=== PATIENT | male | born 1965 | race Caucasian/White ===

== ENCOUNTER 2019-03-13 12:34 | Observation (INO) ==
[2019-03-13 13:01] LABS: Basophils % 0.2 % (0.1-2.0); Eosinophils % 0.4 % (0.1-12.0); Hematocrit 48.2 % (42.0-52.0); Hemoglobin 15.2 g/dL (14.1-18.0); Lymphocytes # 1.4 K/mm3 (0.7-4.5); Lymphocytes % 13.8 % (10-50); Mean Corpuscular HGB Conc 31.6 g/dL (31.8-35.4); Mean Corpuscular Volume 91.3 fl (80-94); Mean Platelet Volume 7.6 fl (7.4-10.4); Monocytes # 0.7 K/mm3 (0.1-1.0); Neutrophils # 8.2 K/mm3 (1.8-7.8); Neutrophils % 78.6 % (37.0-80.0); Platelet Count 381 K/mm3 (142-424); Red Blood Count 5.28 M/mm3 (4.60-6.20); Red Cell Distribution Width 13.9 % (11.5-17.5); White Blood Count 10.4 K/mm3 (4.8-10.8)
[2019-03-13 13:14] LABS: Alanine Aminotransferase 27 U/L (12-78); Albumin Level 3.7 gm/dL (3.4-5.0); Albumin/Globulin Ratio 0.8 (1.1-1.8); Alkaline Phosphatase 89 U/L (46-116); Anion Gap 13.7 mEq/L (5-15); Aspartate Amino Transferase 21 U/L (15-37); Bilirubin,Total 0.7 mg/dL (0.2-1.0); Blood Urea Nitrogen 12 mg/dL (7-18); Calcium 9.5 mg/dL (8.5-10.1); Carbon Dioxide 30 mmol/L (21.0-32.0); Chloride 98 mmol/L (98-107); Globulin 4.8 gm/dl (1.3-3.2); Glucose 114 mg/dL (74-106); Sodium 138 mmol/L (136-145); Total Protein,Serum 8.5 gm/dL (6.4-8.2)
[2019-03-13 13:16] LABS: Microscopic, Urine URINE MICROSCOPIC (MICROSCOPIC)
[2019-03-13 13:30] LABS: Appearance,Urine CLEAR (Clear); Bilirubin,Urine Negative (Negative); Blood, Urine Negative (Negative); Color,Urine YELLOW (Yellow); Glucose,Urine (UA) Negative (Negative); Ketones,Urine Negative (Negative); Leukocyte Esterase,Urine Negative (Negative); PH,Urine 6.5 (5.0-8.5); Protein,Urine Negative (Negative)
[2019-03-13 13:38] LABS: Amphetamine/Metha Screen,Urine Negative ng/mL (<1000); Barbiturates Screen,Urine Negative ng/mL (<200); Benzodiazepines Screen,Urine Negative ng/mL (<200); Cannabinoid Screen,Urine Negative ng/mL (<50); Cocaine Screen,Urine Negative ng/mL (<300); Methadone Screen,Urine Negative ng/mL (<300); Opiate Screen,Urine Negative ng/mL (<300); Phencyclidine Screen,Urine Negative ng/mL (<25)
--- NOTE | 2019-03-13 13:54 | Emergency Department Note ---
ED Disposition Clinical Impression: Metastatic primary lung cancer Qualifiers: Laterality: right Qualified Code(s): C34.91 - Malignant neoplasm of unspecified part of right bronchus or lung Disposition: Admitted As Inpatient Condition on Discharge: Serious - Critical Care Critical Care Time: No Attestation: On 03/13/19, the high probability of a clinically significant, sudden or life threatening deterioration of the following system(s) required my full and direct attention, intervention and personal management. The time I documented below is in addition to time spent performing reported procedures but includes the following listed in this critical care notation. Medical Decision Making - Rocco Inquiry Pt receiving controlled substance: No Vital Signs: 03/13/19 12:34 03/13/19 13:55 Temperature 98.2 F Temperature Source Oral Pulse Rate [Left Radial] 107 H 97 H Respiratory Rate 23 Blood Pressure [Right Arm] 163/100 H 148/79 H Blood Pressure Mean [Right Arm] 121 102 Blood Pressure Source [Right Arm] Automatic Cuff Automatic Cuff Blood Pressure Position [Right Arm] Sitting Sitting 02 Sat by Pulse Oximetry 98 96 Oxygen Delivery Method Room Air Room Air - Lab Data Lab Results 03/13/19 12:45: WBC 10.4, RBC 5.28, Hgb 15.2, Hct 48.2, MCV 91.3, MCH 28.8, MCHC 31.6 L, RDW 13.9, Plt Count 381, MPV 7.6, Neut % (Auto) 78.6, Lymph % (Auto) 13.8, [place] % (Auto) 7.0, Eos % (Auto) 0.4, Baso % (Auto) 0.2, Neut # (Auto) 8.2 H, Lymph # (Auto) 1.4, [place] # (Auto) 0.7, Eos # (Auto) 0.0, Baso # (Auto) 0.0 03/13/19 12:45: Sodium 138, Potassium 3.7, Chloride 98, Carbon Dioxide 30, Anion Gap 13.7, BUN 12, Creatinine 0.93, Estimated Creat Clear 101, Estimated GFR 85, Est GFR ( Amer) 103, Glucose 114 H, Calcium 9.5, Total Bilirubin 0.7, AST 21, ALT 27, Alkaline Phosphatase 89, Troponin I < 0.02, Total Protein 8.5 H, Albumin 3.7, Globulin 4.8 H, Albumin/Globulin Ratio 0.8 L 03/13/19 13:11: Urine Color Yellow, Urine Appearance Clear, Urine pH 6.5, Ur Specific [place] 1.010, Urine Protein Negative, Urine Glucose (UA) Negative, Urine Ketones Negative, Urine Blood Negative, Urine Nitrate Negative, Urine Bilirubin Negative, Urine Urobilinogen 1.0, Ur Leukocyte Esterase Negative, Urine Bacteria Trace 03/13/19 13:11: Urine Opiates Screen Negative, Urine Methadone Screen Negative, Ur Barbituates Screen Negative, Ur Phencyclidine Scrn Negative, Ur Amphetamines Screen Negative, U Benzodiazepines Scrn Negative, Urine Cocaine Screen Negative, U Marijuana (THC) Screen Negative 03/13/19 13:50: Lactate 1.0 Result diagrams: 03/13/19 12:45 03/13/19 12:45 Orders (Tests/Meds): ED MEDICATIONS Discontinued Medications Generic Name Dose Route Start Last Admin Trade Name Freq PRN Reason Stop Dose Admin Dexamethasone Sodium Phosphate 10 mg 03/13/19 14:10 03/13/19 14:19 Decadron 4mg/Ml 5ml Mdv IV 03/13/19 14:11 10 mg ONCE ONE Administration ORDERS Category Date Time Status Blood Culture Stat Micro 03/13/19 13:55 Received - Radiology Data #1 Image(s): Chest Image Reviewed: Yes I reviewed the patient's radiology image, Yes I discussed the image results w/the radiologist Right upper lobe mass - CT Data CT Scan: Head Time Received: 13:[address] Reviewed: Yes: I discussed the CT results w/the radiologist, I have viewed the radiologist's interpretation Findings Narrative: FINDINGS: There is a moderate amount of edema in the central and left aspect of the cerebellum causing displacement of the 4th ventricle toward the right by approximately 1 cm. There is a moderate amount of beam hardening artifact in the skull base along with some motion decreasing fine detail of this area. This is consistent with a cerebellar mass. Is difficult to determine the size of the lesion. There is moderate hydrocephalus with subependymal flow of CSF. Low-density changes are also present in the right frontal lobe with some nodularity peripherally and also some edema in the left parietal lobe. These findings are worrisome for metastatic disease. Suggest CT of the brain with contrast or preferably MRI without and with contrast for further evaluation. No acute hemorrhage apparent. IMPRESSION: Moderate edematous changes within the central left aspect of the cerebellum and in the right frontal region and left frontal parietal area consistent with multiple brain masses consistent with metastatic disease. There is moderate hydrocephalus and transependymal flow of CSF with midline shift of the 4th ventricle to the right by [address] head with contrast or preferably MRI of the brain without and with contrast for further evaluation Dictated by: Jr Lynch MD 03/13/2019 13:49 Electronically signed by Jr Lynch MD in [place] 03/13/2019 13:49 - ECG Data Tracing #1 EKG interpreted by Prabhu Henao MD: Rhythm: sinus Rate: 84 Wilson: normal Ectopy: none Conduction: normal ST Segment Changes: none T Wave Changes: none Q Waves: none No evidence of acute ischemia or injury - Physician Consults Physician Consulted: [facility] Time: 14:20 Reason -: Transfer to another facilty Comment/Response: On diversion, unable to accept. Discussed with patient's amber krystal. She would prefer for him to stay here rather than being transferred to [facility] or [place]. Additional Consult: Lovely Time: 14:30 Reason -: Admission Comment/Response: Agrees to admit the patient to the hospital. We discussed the patient's clinical information, including history, exam, laboratory and radiology results and ED course. Per hospital procedure, I will write temporary bridge inpatient orders on the patient. Specific orders requested by the admitting physician: Consult with care management. Consult to Dr. Sapp. Walters, consult pharmacy for dosing (8mg q12h per [facility]) General Adult HPI - General Chief complaint: Weakness Stated complaint: weakness Time Seen by Provider: 03/13/19 13:54 Mode of Arrival: EMS Limitations: No Limitations Description of Symptoms (Recalled from ER Triage Doc. by RN): per family/EMS pt has been getting weaker and "sicker" over the last few months. EMS was called out due to family unable to get pt out of the floor. Pt states that he feels fine, no complaints at this time - History of Present Illness HPI narrative: Brought in by ambulance. History obtained from patient's daughter. She reports that he has been declining over the past couple of months. Started with bad headaches then began getting dizzy and having gait instability. Complained of a knot on the back of his neck. For the past couple of days unable to get up and walk. Today they tried to get him off the couch and he slid to the floor and they were unable to get him up and therefore had to call for help. The patient is a smoker. He does not have a physician. He only takes ibuprofen. He is a nondrinker. The patient is currently able to answer a couple of simple questions such as his name, place, and whether he has pain, but not able to give any detailed history. - Related Data Home Medications Medication Instructions Recorded Confirmed Unobtainable 03/13/19 03/13/19 Allergies Allergy/AdvReac Type Severity Reaction Status Date / Time No Known Allergies Allergy Verified 03/13/19 12:41 [facility] History - Hepatitis A Screen Drug use history?: No High risk sexual behaviors?: No History of sexually transmitted infection?: No Currently employed?: No Childcare worker?: No Do you have indoor plumbing?: Yes Do you have electricity?: Yes Attestation statement:: This patient has been screened for Hepatitis A risk factors. I have reviewed the patient's past medical history: Yes - Social History Smoking Status: Unknown if ever smoked Alcohol Intake: never Occupational Status: unemployed ROS Obtained: Yes unobtainable due to mental status Physical Exam - General General appearance: alert, in no apparent distress - Head Head exam: atraumatic, normocephalic - Eye Eye exam: Present: normal appearance, EOMI - ENT ENT exam: Present: mucous membranes moist, other (Poor dentition) - Neck Neck exam: Present: normal inspection, trachea midline, other (No masses palpated). Absent: tenderness, lymphadenopathy - Chest Chest inspection: Present: normal inspection, symmetric chest wall rise - Respiratory Respiratory exam: Present: normal lung sounds bilaterally. Absent: respiratory distress - Cardiovascular Cardiovascular exam: Present: regular rate, normal rhythm, normal heart sounds - Abdominal Exam Abdominal exam: Present: soft, normal bowel sounds. Absent: distention, tenderness - Extremities Exam Extremities exam: Present: normal inspection - Neurological Exam Neurological exam: Present: alert, CN II-XII intact. Absent: oriented X3 (Oriented to person and place, does not answer date), motor sensory deficit - Psychiatric Psychiatric exam: Present: flat affect - Skin Skin exam: Present: warm, dry
[2019-03-13 14:12] LABS: Bacteria,Urine Trace /lpf
--- NOTE | 2019-03-13 18:23 | Electrocardiograph Report ---
APPROVED REPORT Exam: Resting ECG HR:84 bpm ECG Measurements Heart Rate 84 AXES NV 138 P 76 QRSd 88 QRS 64 QT 380 T76 QTc 449 <Conclusion> Normal sinus rhythm with sinus arrhythmia, Incomplete RBBB Otherwise Normal Electronically signed by : Bijan Lopez, 03/13/2019 18:22:20
--- NOTE | 2019-03-14 07:21 | Pharmacy Consult Notes ---
[facility] Pharmacy VTE Monitoring - Patient Demographics Admission date: 03/14/19 Report Date: 03/14/19 Time: 07:21 Allergies/Adverse Reactions: Patient Allergies No Known Allergies Allergy (Verified 03/13/19 12:41) Height: 1.85 m Weight: 84.085 kg Patient Problems: Current Active Problems Metastatic primary lung cancer (Acute) - VTE Risk Labs: VTE Related Lab Results Hgb 15.2 g/dL (14.1-18.0) 03/13/19 12:45 Hct 48.2 % (42.0-52.0) 03/13/19 12:45 Plt Count 381 K/mm3 (142-424) 03/13/19 12:45 BUN 12 mg/dL (7-18) 03/13/19 12:45 Creatinine 0.93 mg/dL (0.70-1.30) 03/13/19 12:45 Estimated Creat Clear 101 mL/min (50-200) 03/13/19 12:45 Clinical Trial Participant: No - Prophylaxis VTE Prophylaxis Ordered?: Yes Types of VTE Prophylaxis: TEDS Knee High
--- NOTE | 2019-03-14 09:28 | History & Physical Report ---
*Admission Date: 03/14/19 *Chief complaint: Altered Mental Status *History of present illness: 53-year-old patient sitting up in bed this morning, daughter at bedside. He does report he is feeling better. Daughter also reports he is more alert this morning then he was yesterday. Explained to daughter this morning that patient's condition is very serious and we would discuss more w/ her after referrals have seen PT. Brought in by ambulance. History obtained from patient's daughter. She reports that he has been declining over the past couple of months. Started with bad headaches then began getting dizzy and having gait instability. Complained of a knot on the back of his neck. For the past couple of days unable to get up and walk. Today they tried to get him off the couch and he slid to the floor and they were unable to get him up and therefore had to call for help. The patient is a smoker. He does not have a physician. He only takes ibuprofen. He is a nondrinker. The patient is currently able to answer a couple of simple questions such as his name, place, and whether he has pain, but not able to give any detailed history. (Per Dr. Henao). 03/13 CXR: IMPRESSION: Increased density in the right upper lobe suspicious for right upper lobe mass. Follow-up with CT chest suggested for confirmation. Dense consolidation could have a similar appearance. Dictated by: Jr Lynch MD 03/[address]: IMPRESSION: Moderate edematous changes within the central left aspect of the cerebellum and in the right frontal region and left frontal parietal area consistent with multiple brain masses consistent with metastatic disease. There is moderate hydrocephalus and transependymal flow of CSF with midline shift of the 4th ventricle to the right by [address] head with contrast or preferably MRI of the brain without and with contrast for further evaluation Dictated by: Jr Lynch MD 03/13 Abd/Pelvis CT: IMPRESSION: No acute findings. Dictated by: Jr Lynch MD [facility] History *Have you ever received a pneumonia vaccine?: No *Have you received a flu vaccine this season?: No - *Social History Smoking Status: Current every day smoker Tobacco Type: cigarettes # Packs/Day (cigarettes): 3 Alcohol Intake: never *Occupational Status:: unemployed Housing: house Household Members: spouse, children *Travel in the last 8 weeks: None Review of Systems - Constitutional Reports fatigue, Reports headache(s), Reports lack of energy, Reports weakness - ENT Reports dizziness, Reports headache(s), Reports neck pain - *Cardiovascular Denies chest pain - *Neurologic Reports abnormal walking, Reports confusion, Reports dizziness, Reports headache(s) - Psychiatric Reports confusion - Endocrine Denies rapid, pounding, or irregular heartbeat, Denies increased urination - Hematologic/Lymphatic Denies easy bleeding, Denies easy bruising - Allergic/Immunologic Denies GI upset with certain foods, Denies tongue swelling Meds Home Medications Medication Instructions Recorded Confirmed Type No Known Home Medications 03/14/19 03/14/19 History Allergies Allergy/AdvReac Type Severity Reaction Status Date / Time No Known Allergies Allergy Verified 03/13/19 12:41 Exam Vital signs and Labs for Last 24 Hours: Temp Pulse Resp BP Pulse Ox 97.8 F 105 H 17 154/59 H 92 L 03/14/19 08:00 03/14/19 08:00 03/14/19 08:00 03/14/19 08:00 03/14/19 08:00 Laboratory Results - last 24 hr 03/13/19 12:45: WBC 10.4, RBC 5.28, Hgb 15.2, Hct 48.2, MCV 91.3, MCH 28.8, MCHC 31.6 L, RDW 13.9, Plt Count 381, MPV 7.6, Neut % (Auto) 78.6, Lymph % (Auto) 13.8, [place] % (Auto) 7.0, Eos % (Auto) 0.4, Baso % (Auto) 0.2, Neut # (Auto) 8.2 H, Lymph # (Auto) 1.4, [place] # (Auto) 0.7, Eos # (Auto) 0.0, Baso # (Auto) 0.0 03/13/19 12:45: Sodium 138, Potassium 3.7, Chloride 98, Carbon Dioxide 30, Anion Gap 13.7, BUN 12, Creatinine 0.93, Estimated Creat Clear 101, Estimated GFR 85, Est GFR ( Amer) 103, Glucose 114 H, Calcium 9.5, Total Bilirubin 0.7, AST 21, ALT 27, Alkaline Phosphatase 89, Troponin I < 0.02, Total Protein 8.5 H, Albumin 3.7, Globulin 4.8 H, Albumin/Globulin Ratio 0.8 L 03/13/19 13:11: Urine Color Yellow, Urine Appearance Clear, Urine pH 6.5, Ur Specific [place] 1.010, Urine Protein Negative, Urine Glucose (UA) Negative, Urine Ketones Negative, Urine Blood Negative, Urine Nitrate Negative, Urine Bilirubin Negative, Urine Urobilinogen 1.0, Ur Leukocyte Esterase Negative, Urine Bacteria Trace 03/13/19 13:11: Urine Opiates Screen Negative, Urine Methadone Screen Negative, Ur Barbituates Screen Negative, Ur Phencyclidine Scrn Negative, Ur Amphetamines Screen Negative, U Benzodiazepines Scrn Negative, Urine Cocaine Screen Negative, U Marijuana (THC) Screen Negative 03/13/19 13:50: Lactate 1.0 I & O for Last 24 hours: Intake & Output 03/11/19 03/12/19 03/13/19 03/14/19 23:59 23:59 23:59 23:59 Intake Total 0 / 0 1076 / 1076 Output Total 1300 / 1300 Balance 0 / 0 -224 / -224 Weight 185 lb 5 oz 185 lb 6 oz - Constitutional no acute distress - *Routine HEENT Exam Head: Present: normocephalic, atraumatic Eye: Present: EOMI, PERRL ENT: Present: mucous membranes dry - *Routine Neck Exam Present: full ROM. Absent: JVD - *Routine Respiratory Exam Present: CTA bilaterally, diminished air movement. Absent: accessory muscle use - *Routine Cardiovascular Exam Present: RRR - *Routine Abdominal Exam Present: soft, normoactive bowel sounds. Absent: tenderness, firm - *Routine Extremities Exam Absent: cyanosis, edema, calf tenderness - Routine Back/Spine/Pelvis Exam Back/Spine: Present: full ROM. Absent: CVA tenderness - *Routine Skin Exam Present: intact, warm. Absent: cyanosis - *Routine Neurological Exam Present: alert, CN II-XII intact, moving all extremities. Absent: motor deficit - Routine Psychiatric Exam Present: normal affect. Absent: auditory hallucinations, visual hallucinations Assessment and Plan - Assessment and plan all Dx Assessment and Plan for all problems:: Rounded with Dr. Murry, all orders per Dr. Murry 1. Refer to Dr. Harris
--- NOTE | 2019-03-14 12:24 | Consult Report ---
*Admission Date: 03/14/19 *Reason for consult:: brain metastasis *History of present illness: 53 yo wm we are ask to see due to new dx of presumed brain metastasis on ct of head and lung lesion noted on cxr. pt is awake but speaks very little- I'm not sure how much he comprehends. family and friends are at bedside. apparently he has being doing well until last night when he was found on the floor. 911 c alled and he was brought to [facility]. ct of head demonstrates significant edema in cerebellum with mid line shift and probable frontal lesion. he was started on decadron. cxr demonstrates concern for rul lung mass. [facility] History I have reviewed the patient's past medical history: Yes *Have you ever received a pneumonia vaccine?: No *Have you received a flu vaccine this season?: No - *Social History Smoking Status: Current every day smoker Tobacco Type: cigarettes # Packs/Day (cigarettes): 3 Alcohol Intake: never *Occupational Status:: unemployed Housing: house Household Members: spouse, children *Travel in the last 8 weeks: None Family Hx:: Unable to obtain Review of Systems - Review of Systems Review of systems:: unable to obtain - *Neurologic Reports abnormal walking, Reports confusion, Reports dizziness, Reports headache(s), Reports weakness Meds Home Medications Medication Instructions Recorded Confirmed Type No Known Home Medications 03/14/19 03/14/19 History Allergies Allergy/AdvReac Type Severity Reaction Status Date / Time No Known Allergies Allergy Verified 03/13/19 12:41 Exam Vital signs and Labs for Last 24 Hours: Temp Pulse Resp BP Pulse Ox 97.8 F 105 H 17 154/59 H 92 L 03/14/19 08:00 03/14/19 08:00 03/14/19 08:00 03/14/19 08:00 03/14/19 08:00 Laboratory Results - last 24 hr 03/13/19 12:45: WBC 10.4, RBC 5.28, Hgb 15.2, Hct 48.2, MCV 91.3, MCH 28.8, MCHC 31.6 L, RDW 13.9, Plt Count 381, MPV 7.6, Neut % (Auto) 78.6, Lymph % (Auto) 13.8, [place] % (Auto) 7.0, Eos % (Auto) 0.4, Baso % (Auto) 0.2, Neut # (Auto) 8.2 H, Lymph # (Auto) 1.4, [place] # (Auto) 0.7, Eos # (Auto) 0.0, Baso # (Auto) 0.0 03/13/19 12:45: Sodium 138, Potassium 3.7, Chloride 98, Carbon Dioxide 30, Anion Gap 13.7, BUN 12, Creatinine 0.93, Estimated Creat Clear 101, Estimated GFR 85, Est GFR ( Amer) 103, Glucose 114 H, Calcium 9.5, Total Bilirubin 0.7, AST 21, ALT 27, Alkaline Phosphatase 89, Troponin I < 0.02, Total Protein 8.5 H, Albumin 3.7, Globulin 4.8 H, Albumin/Globulin Ratio 0.8 L 03/13/19 13:11: Urine Color Yellow, Urine Appearance Clear, Urine pH 6.5, Ur Specific [place] 1.010, Urine Protein Negative, Urine Glucose (UA) Negative, Urine Ketones Negative, Urine Blood Negative, Urine Nitrate Negative, Urine Bilirubin Negative, Urine Urobilinogen 1.0, Ur Leukocyte Esterase Negative, Urine Bacteria Trace 03/13/19 13:11: Urine Opiates Screen Negative, Urine Methadone Screen Negative, Ur Barbituates Screen Negative, Ur Phencyclidine Scrn Negative, Ur Amphetamines Screen Negative, U Benzodiazepines Scrn Negative, Urine Cocaine Screen Negative, U Marijuana (THC) Screen Negative 03/13/19 13:50: Lactate 1.0 I & O for Last 24 hours: Intake & Output 03/12/19 03/13/19 03/14/19 03/15/19 11:59 11:59 11:59 11:59 Intake Total 1076 / 1076 Output Total 1300 / 1300 Balance -224 / -224 Weight 185 lb 6 oz - *Routine Neurological Exam Present: alert (pt nods and will answer some questions), oriented X3 Internal Medicine - CN: Reslt - Labs CBC & Chem 7: 03/13/19 12:45 03/13/19 12:45 Labs: Short CBC 03/13/19 Range/Units 12:45 WBC 10.4 (4.8-10.8) K/mm3 Hgb 15.2 (14.1-18.0) g/dL Hct 48.2 (42.0-52.0) % Plt Count 381 (142-424) K/mm3 BMP 03/13/19 12:45 Sodium 138 Potassium 3.7 Chloride 98 Carbon Dioxide 30 BUN 12 Creatinine 0.93 Glucose 114 H Calcium 9.5 Cardiac Enzymes 03/13/19 Range/Units 12:45 Troponin I < 0.02 (0.00-0.06) ng/ml Liver Function 03/13/19 Range/Units 12:45 Total Bilirubin 0.7 (0.2-1.0) mg/dL AST 21 (15-37) U/L ALT 27 (12-78) U/L Alkaline Phosphatase 89 (46-116) U/L Albumin 3.7 (3.4-5.0) gm/dL Urine 03/13/19 Range/Units 13:11 Urine Color Yellow (Yellow) Urine Appearance Clear (Clear) Urine pH 6.5 (5.0-8.5) Ur Specific [place] 1.010 (1.005-1.030) Urine Protein Negative (Negative) Urine Glucose (UA) Negative (Negative) Assessment and Plan - Assessment and plan all Dx Assessment and Plan for all problems:: pt presents with confusion. ct of head demonstrates edema and probable brain mets. cxr demonstrates rul lung mass. long discussion with pt and family at bedside. discussed clinically this appears to be stage IV lung cancer to brain. discussed not curable. treatment would involve wbxrt which is not offered at [facility]. he would need transfer to another facility. I also discussed comfort measures/bsc as an option. pt is young and was healthy prior. family strongly prefers he is transferred to another facility in [place]. I d/w nursing. thank you for referral. please call with questions. Maci Harris MD
--- NOTE | 2019-03-14 15:32 | H&P/Discharge Summary ---
General - General Admission date:: 03/13/19 Discharge date: 03/14/19 *Admission Date: 03/14/19 *History of present illness: 53-year-old patient sitting up in bed this morning, daughter at bedside. He does report he is feeling better. Daughter also reports he is more alert this morning then he was yesterday. Explained to daughter this morning that patient's condition is very serious and we would discuss more w/ her after referrals have seen PT. Brought in by ambulance. History obtained from patient's daughter. She reports that he has been declining over the past couple of months. Started with bad headaches then began getting dizzy and having gait instability. Complained of a knot on the back of his neck. For the past couple of days unable to get up and walk. Today they tried to get him off the couch and he slid to the floor and they were unable to get him up and therefore had to call for help. The patient is a smoker. He does not have a physician. He only takes ibuprofen. He is a nondrinker. The patient is currently able to answer a couple of simple questions such as his name, place, and whether he has pain, but not able to give any detailed history. (Per Dr. Henao). 03/13 CXR: IMPRESSION: Increased density in the right upper lobe suspicious for right upper lobe mass. Follow-up with CT chest suggested for confirmation. Dense consolidation could have a similar appearance. Dictated by: Jr Lynch MD 03/[address]: IMPRESSION: Moderate edematous changes within the central left aspect of the cerebellum and in the right frontal region and left frontal parietal area consistent with multiple brain masses consistent with metastatic disease. There is moderate hydrocephalus and transependymal flow of CSF with midline shift of the 4th ventricle to the right by [address] head with contrast or preferably MRI of the brain without and with contrast for further evaluation Dictated by: Jr Lynch MD 03/[address]: IMPRESSION: Moderate edematous changes within the central left aspect of the cerebellum and in the right frontal region and left frontal parietal area consistent with multiple brain masses consistent with metastatic disease. There is moderate hydrocephalus and transependymal flow of CSF with midline shift of the 4th ventricle to the right by [address] head with contrast or preferably MRI of the brain without and with contrast for further evaluation Dictated by: Jr Lynch MD 03/13 Abd/Pelvis CT: IMPRESSION: No acute findings. Dictated by: Jr Lynch MD [facility] History *Have you ever received a pneumonia vaccine?: No *Have you received a flu vaccine this season?: No - *Social History Smoking Status: Current every day smoker Tobacco Type: cigarettes # Packs/Day (cigarettes): 3 Alcohol Intake: never *Occupational Status:: unemployed Housing: house Household Members: spouse, children *Travel in the last 8 weeks: None Family Hx:: Unable to obtain Review of Systems - Constitutional Reports fatigue, Reports lack of energy, Reports weakness - Eyes Denies double vision, Denies sensitivity to light - ENT Reports dizziness, Reports headache(s), Reports neck pain - *Cardiovascular Denies chest pain, Denies shortness of breath - *Respiratory Denies chest congestion, Denies shortness of breath - *Gastrointestinal Denies abdominal pain, Denies coffee ground vomit, Denies bright, red blood in stools - *Genitourinary Denies difficulty urinating, Denies painful urination - Integumentary/Breasts Denies bleeding lesions, Denies change in skin color - *Neurologic Reports abnormal walking, Reports confusion, Reports dizziness, Reports headache(s), Reports weakness - Psychiatric Reports confusion, Reports hopelessness, Denies sensing things others do not sense, Denies thoughts of hurting/killing yourself - Endocrine Denies cold intolerance, Denies rapid, pounding, or irregular heartbeat - Hematologic/Lymphatic Denies easy bleeding, Denies easy bruising - Allergic/Immunologic Denies GI upset with certain foods, Denies tongue swelling Exam Vital signs and Labs for Last 24 Hours: Temp Pulse Resp BP Pulse Ox 97.8 F 105 H 17 154/59 H 92 L 03/14/19 08:00 03/14/19 08:00 03/14/19 08:00 03/14/19 08:00 03/14/19 08:00 I & O for Last 24 hours: Intake & Output 03/11/19 03/12/19 03/13/19 03/14/19 23:59 23:59 23:59 23:59 Intake Total 0 / 0 1436 / 1436 Output Total 1300 / 1300 Balance 0 / 0 136 / 136 Weight 185 lb 5 oz 185 lb 6 oz - Constitutional no acute distress - *Routine HEENT Exam Head: Present: normocephalic, atraumatic Eye: Present: EOMI, PERRL. Absent: conjunctival icterus, periorbital tenderness ENT: Present: mucous membranes dry. Absent: sinus tenderness - *Routine Neck Exam Present: full ROM, trachea midline. Absent: JVD, tracheal deviation - *Routine Respiratory Exam Present: CTA bilaterally, diminished air movement. Absent: accessory muscle use, respiratory distress - *Routine Cardiovascular Exam Present: RRR - *Routine Abdominal Exam Present: soft, normoactive bowel sounds. Absent: tenderness, firm - *Routine Extremities Exam Present: full ROM, pulses intact. Absent: cyanosis, calf tenderness - Routine Back/Spine/Pelvis Exam Back/Spine: Present: full ROM. Absent: CVA tenderness - *Routine Skin Exam Present: intact. Absent: cyanosis, jaundice - *Routine Neurological Exam Present: alert, CN II-XII intact, moving all extremities. Absent: tremors - Routine Psychiatric Exam Present: normal affect. Absent: auditory hallucinations, visual hallucinations Hospital Course Hospital Course: 53-year-old male patient admitted from ED with weakness and falling and altered mental status. CT of head and chest with presumed brain metastasis and lung lesion noted on chest x-ray (per Dr. Harris). CT of head significant edema in the cerebellum with midline shift and probable frontal lesion (per Dr. Harris). [facility] is on diversion patient will be transferred to [facility] on oncology floor. Dr. Harris has discussed patient with Dr. Barr of [facility]. Verbal report given to Dr. Abel. Family is aware and is agreeable to transfer. On floor patient has received IV steroids. Results - Additional Comments Rounded with Dr. Murry, all orders per Dr. Murry 1. We will transfer to [facility] on oncology service 2. Report phoned to Dr. Pastor DS: Diagnosis - Discharge Diagnosis (1) Altered mental state Status: Acute (2) Metastatic primary lung cancer Status: Acute (3) Tobacco abuse Status: Acute Discharge Plan - Patient Discharge Instructions ACTIVITY: Continue current activity DIET: continue same diet - Follow up Plan Disposition: Xfer Other Home Medications: Home Medications Medication Instructions Recorded Confirmed Type No Known Home Medications 03/14/19 03/14/19 History Prescriptions/Medication Reconciliation: No Action No Known Home Medications - Problem Reconciliation Problems Reviewed?: Yes
== END 2019-03-14 20:00 | disposition short-term general hospital (02) ==
LOC: ER 12:34 → 2ND 14:49 → INTOOBSV 16:26 → 2ND 16:27
PROVIDERS: ADMIT Emergency Medicine; ATTEND Emergency Medicine
DX: C34.11 Malignant neoplasm of upper lobe, right bronchus or lung; Z72.0 Tobacco use; C79.31 Secondary malignant neoplasm of brain
CPT/HCPCS: 36415; 70450; 71010; 71045; 72170; 80053; 80305; 81001; 83605; 84484; 85025; 87040; 93005; 96374; 96375; 99284; G0378; J2405

== ENCOUNTER 2019-05-03 08:45 | Outpatient (RCR) | payer OTHER, SELFPAY | END 2019-05-03 08:50 | disposition home or self-care (01) | LOC: PT 08:45 | PROVIDERS: Visit Provider Internal Medicine Medical Oncology | DX: C34.91 Malignant neoplasm of unspecified part of right bronchus or lung; R53.1 Weakness | CPT/HCPCS: 97163 ==

== ENCOUNTER 2019-05-10 11:17 | Outpatient (CLI) | payer OTHER, SELFPAY ==
[2019-05-10 11:18] VITALS: BMI 24.6
[2019-05-10 12:00] VITALS: BP 106/74; PULSE 103; RESP 18; O2SAT 94
[2019-05-10 12:15] LABS: Basophils % 0.3 % (0.1-2.0); Eosinophils # 0.1 K/mm3 (0.0-0.4); Eosinophils % 0.9 % (0.1-12.0); Hematocrit 41.1 % (42.0-52.0); Hemoglobin 13.6 g/dL (14.1-18.0); Lymphocytes # 0.8 K/mm3 (0.7-4.5); Lymphocytes % 13.4 % (10-50); Mean Corpuscular HGB Conc 33.2 g/dL (31.8-35.4); Mean Corpuscular Hemoglobin 30.3 pg (27.0-31.2); Mean Corpuscular Volume 91.1 fl (80-94); Mean Platelet Volume 7.4 fl (7.4-10.4); Monocytes # 0.2 K/mm3 (0.1-1.0); Monocytes % 3.8 % (1.7-9.3); Neutrophils % 81.6 % (37.0-80.0); Platelet Count 346 K/mm3 (142-424); Red Blood Count 4.51 M/mm3 (4.60-6.20); Red Cell Distribution Width 16.2 % (11.5-17.5); White Blood Count 6.2 K/mm3 (4.8-10.8)
[2019-05-10 13:35] LABS: Blood Urea Nitrogen 23 mg/dL (7-18); Calcium 8.3 mg/dL (8.5-10.1); Carbon Dioxide 25 mmol/L (21.0-32.0); Chloride 104 mmol/L (98-107); Creatinine Clearance Estimated 121 mL/min (50-200); Creatinine,Serum 0.86 mg/dL (0.70-1.30); Estimated Glomerular Filt Rate 93 ml/min (>60); GFR (African American) 113 ML/MIN (>60); Glucose 114 mg/dL (74-106); Sodium 141 mmol/L (136-145)
== END 2019-05-10 12:10 | disposition home or self-care (01) ==
LOC: INF 11:17
PROVIDERS: Visit Provider Internal Medicine Medical Oncology
DX: C34.11 Malignant neoplasm of upper lobe, right bronchus or lung (principal)
CPT/HCPCS: 36415; 80048; 85025; 96372

== ENCOUNTER 2019-05-30 07:38 | Outpatient (CLI) | payer OTHER, SELFPAY ==
[2019-05-30] VITALS (8 sets, daily range): BP systolic 105–133; BP diastolic 67–93; PULSE 109–125; RESP 18–20; TEMP 36.8; O2SAT 96; BMI 25.4
--- NOTE | 2019-05-30 08:17 | CT_ITS ---
PROCEDURE: CT ABDOMEN PELVIS W CON CLINICAL INDICATION: LUNG CANCER Lung cancer evaluation COMPARISON: CT HEAD/BRAIN WO CON from 03/13/2019 TECHNIQUE: IV Contrast: 75ML OPTIRAY 350 Oral Contrast 20ml Gastroview Axial images obtained with sagittal and coronal reformats. All CT scans at the facility use one or more dose reduction, viz: automated exposure control, ma/kV adjustment per patient size (including targeted exams where dose is matched to indication, i.e. head), or iterative reconstruction technique. FINDINGS: LOWER THORAX: Please see chest CT report ABDOMEN & PELVIS: There is some fatty infiltration along the falciform ligament. There are 2 small isodense to these of the left hepatic lobe which are nonspecific too small to categorize at 4 mm each. The spleen and pancreas have an unremarkable appearance. There is some minimal nodularity of the left adrenal gland at 1.3 cm nonspecific requiring follow-up. No intestinal obstruction or free air. There is a [employer] shunt traversing the right anterior abdominal wall with the tip in the right mid abdominal region laterally. No abdominal or pelvic mass or adenopathy. There is diverticulosis of the sigmoid colon but no evidence of diverticulitis. There is mild thickening of the urinary bladder nonspecific. No bony destructive process. IMPRESSION: 1. There are 2 small hypodensities of the left hepatic lobe which are too small to categorize. There is minimal nodularity of left adrenal gland nonspecific. Overall, the findings are not convincing for metastasis. However, follow-up is suggested for confirmation. 2. Colonic diverticulosis. No evidence of diverticulitis. 3. [employer] shunt in place Dictated by: Jr Lynch MD 05/31/2019 12:38 Electronically signed by Jr Lynch MD in [facility] 05/31/2019 12:38
--- NOTE | 2019-05-30 08:17 | CT_ITS ---
PROCEDURE: CT CHEST W CON CLINCAL INDICATION: LUNG CANCER Follow-up lung cancer COMPARISON: XR CHEST PORTABLE from 03/13/2019 CT ABDOMEN PELVIS W CON from 05/30/2019 TECHNIQUE: IV Contrast: 75ml Optiray 350 Axial images obtained with sagittal and coronal reformats. All CT scans at the facility use one or more dose reduction, viz: automated exposure control, ma/kV adjustment per patient size (including targeted exams where dose is matched to indication, i.e. head), or iterative reconstruction technique. FINDINGS: Previous exam is unavailable for comparison. The report was delayed waiting on outside films for comparison but have not been made available. Limited outside reports are available. Addendum can be added if images are made available for comparison. There is a large right suprahilar mass measuring to 6.8 cm AP, 7.8 cm cephalad caudad, and up to 4.7 cm transverse. This involves the mediastinum insert clean the superior vena cava with invasion into the mediastinal fat. Nodularity noted in the anterior mediastinum consistent with extension or lymph nodes. Enlarged node is present in the left AP window at 3 x 1.4 cm. The right hilar mass encircles the segmental upper lobe pulmonary arteries and drapes over the descending branch of the right pulmonary artery laterally. There is a right supraclavicular lymph node at 2.1 by 1.2 cm. A [employer] shunt traverses the right hemithorax medially Patchy areas of infiltrate are present in the right upper lobe may be postobstructive in nature. There is an area of cavitation in the central aspect of the right middle lobe. This measures 4.7 cm. There is some peripheral consolidation around this area of cavitation. Other smaller cavitary nodules are present in the right middle lobe along with a nodular area in the right middle lobe medially at 1.9 cm. Scattered pulmonary nodular opacities are present bilaterally. There is some infiltrate noted in the right lower lobe posteriorly and laterally. In the lingula there is a masslike area measuring 4.4 cm with some internal cavitation with smaller nodular opacities in the left lower lobe and in the inferior lingula. No acute bony anomalies. IMPRESSION: 1. Right hilar mass with invasion into the mediastinum with mediastinal and supraclavicular adenopathy as described above consistent with bronchogenic carcinoma. 2. There Is a prominent cavitary lesion in the right middle lobe and a masslike area of density in the lingula with some central cavitation along with other smaller cavitary nodules. These could be neoplastic or infectious/inflammatory. Please correlate with old exam which is not available for comparison. 3. There is a small embolus within the posterior basilar segmental artery of the right lower lobe age indeterminate. Dictated by: Jr Lynch MD 06/01/2019 10:04 Electronically signed by Jr Lynch MD in [facility] 06/01/2019 10:04
[2019-05-30 09:18] LABS: Basophils % 0.2 % (0.1-2.0); Eosinophils % 0.1 % (0.1-12.0); Hematocrit 37.2 % (42.0-52.0); Hemoglobin 12.3 g/dL (14.1-18.0); Lymphocytes # 1.7 K/mm3 (0.7-4.5); Lymphocytes % 10.8 % (10-50); Mean Corpuscular Volume 90.9 fl (80-94); Mean Platelet Volume 8.1 fl (7.4-10.4); Monocytes # 0.7 K/mm3 (0.1-1.0); Monocytes % 4.3 % (1.7-9.3); Neutrophils # 13.3 K/mm3 (1.8-7.8); Neutrophils % 84.6 % (37.0-80.0); Platelet Count 577 K/mm3 (142-424); Red Blood Count 4.09 M/mm3 (4.60-6.20); Red Cell Distribution Width 16.3 % (11.5-17.5); White Blood Count 15.7 K/mm3 (4.8-10.8)
[2019-05-30 09:19] LABS: MANUAL DIFFERENTIAL MANUAL DIFFERENTIAL (MANUAL DIFF)
[2019-05-30 09:28] LABS: Anion Gap 12.2 mEq/L (5-15); Blood Urea Nitrogen 24 mg/dL (7-18); Carbon Dioxide 28 mmol/L (21.0-32.0); Chloride 100 mmol/L (98-107); Creatinine Clearance Estimated 144 mL/min (50-200); Creatinine,Serum 0.72 mg/dL (0.70-1.30); Estimated Glomerular Filt Rate 115 ml/min (>60); GFR (African American) 139 ML/MIN (>60); Glucose 86 mg/dL (74-106); Potassium 4.2 mmoL/L (3.5-5.1); Sodium 136 mmol/L (136-145)
[2019-05-30 10:08] LABS: Lymphocytes % 12 % (10-50); Monocytes % 7 % (2-9); Neutrophils % 81 % (42-76); Platelet Estimate Slight Increase; RBC Morphology Normal; Total Cells Counted 100
== END 2019-05-30 13:05 | disposition home or self-care (01) ==
LOC: RAD 08:12 → INF 09:04
PROVIDERS: PCP Emergency Medicine; Visit Provider Internal Medicine Medical Oncology
DX: Z51.11 Encounter for antineoplastic chemotherapy (principal); C34.91 Malignant neoplasm of unspecified part of right bronchus or lung
CPT/HCPCS: 71260; 74177; 80048; 85007; 85025; 96411; 96413; 96417; J8501; J9045; J9271; J9305; Q0166; Q9967

== ENCOUNTER 2019-06-20 10:25 | Outpatient (CLI) | payer OTHER, SELFPAY ==
[2019-06-20 10:26] VITALS: BMI 24.6
[2019-06-20 11:10] LABS: Basophils # 0.1 K/mm3 (0-0.2); Basophils % 0.3 % (0.1-2.0); Eosinophils # 0.1 K/mm3 (0.0-0.4); Eosinophils % 0.2 % (0.1-12.0); Hematocrit 32.6 % (42.0-52.0); Hemoglobin 10.4 g/dL (14.1-18.0); Lymphocytes # 0.8 K/mm3 (0.7-4.5); Lymphocytes % 2.5 % (10-50); Mean Corpuscular HGB Conc 31.9 g/dL (31.8-35.4); Mean Corpuscular Hemoglobin 28.8 pg (27.0-31.2); Mean Corpuscular Volume 90.5 fl (80-94); Mean Platelet Volume 8.4 fl (7.4-10.4); Monocytes % 3.3 % (1.7-9.3); Neutrophils # 28.9 K/mm3 (1.8-7.8); Neutrophils % 93.7 % (37.0-80.0); Platelet Count 596 K/mm3 (142-424); Red Cell Distribution Width 16.3 % (11.5-17.5)
[2019-06-20 11:13] LABS: White Blood Count 29.9 K/mm3 (4.8-10.8)
[2019-06-20 11:14] LABS: MANUAL DIFFERENTIAL MANUAL DIFFERENTIAL (MANUAL DIFF)
[2019-06-20 11:25] LABS: Alanine Aminotransferase 16 U/L (12-78); Albumin Level 1.4 gm/dL (3.4-5.0); Albumin/Globulin Ratio 0.3 (1.1-1.8); Alkaline Phosphatase 156 U/L (46-116); Anion Gap 18.3 mEq/L (5-15); Bilirubin,Total 0.4 mg/dL (0.2-1.0); Blood Urea Nitrogen 32 mg/dL (7-18); Calcium 8.9 mg/dL (8.5-10.1); Carbon Dioxide 22 mmol/L (21.0-32.0); Chloride 97 mmol/L (98-107); Creatinine Clearance Estimated 119 mL/min (50-200); Creatinine,Serum 0.87 mg/dL (0.70-1.30); Estimated Glomerular Filt Rate 92 ml/min (>60); GFR (African American) 111 ML/MIN (>60); Globulin 5.3 gm/dl (1.3-3.2); Glucose 99 mg/dL (74-106); Sodium 133 mmol/L (136-145); Total Protein,Serum 6.7 gm/dL (6.4-8.2)
[2019-06-20 11:28] LABS: Aspartate Amino Transferase 27 U/L (15-37); Potassium 4.3 mmoL/L (3.5-5.1)
[2019-06-20 11:30] LABS: Lymphocytes % 7 % (10-50); Monocytes % 5 % (2-9); Neutrophils % 84 % (42-76); Platelet Estimate Normal; RBC Morphology Normal; Total Cells Counted 100
--- NOTE | 2019-06-20 11:30 | PC.NURSE ---
1130- spoke with kathy rn from oncology with stating that will be going to the er not returning to infusion for treatment today. pt will be scheduled for chemo at a later date.
== END 2019-06-20 11:30 | disposition still patient (30) ==
LOC: INF 10:25
PROVIDERS: Visit Provider Internal Medicine Medical Oncology
DX: Z51.11 Encounter for antineoplastic chemotherapy (principal); C34.11 Malignant neoplasm of upper lobe, right bronchus or lung
CPT/HCPCS: 80053; 85007; 85025

== ENCOUNTER 2019-06-20 11:32 | Inpatient (IN) ==
--- NOTE | 2019-06-20 11:45 | Emergency Department Note ---
ED Disposition Clinical Impression: COPD with acute exacerbation Pneumonia Qualifiers: Pneumonia type: due to unspecified organism Laterality: bilateral Lung location: unspecified part of lung Qualified Code(s): J18.9 - Pneumonia, unspecified organism Metastatic primary lung cancer Qualifiers: Laterality: unspecified laterality Qualified Code(s): C34.90 - Malignant neoplasm of unspecified part of unspecified bronchus or lung Disposition: Admitted As Inpatient Condition on Discharge: Fair (Stable) Time of Disposition: 13:07 - Critical Care Critical Care Time: No Attestation: On , the high probability of a clinically significant, sudden or life threatening deterioration of the following system(s) required my full and direct attention, intervention and personal management. The time I documented below is in addition to time spent performing reported procedures but includes the following listed in this critical care notation. Medical Decision Making - Medical Records Medical records reviewed: Yes: I reviewed the patient's medical records. - Rocco Inquiry Pt receiving controlled substance: No Rocco was queried for this patient: No Vital Signs: 06/20/19 11:38 06/20/19 11:42 06/20/19 12:10 Temperature 97.5 F L Temperature Source Oral Pulse Rate [Right] 130 H 145 H Respiratory Rate 27 H Blood Pressure [Right Arm] 119/72 Blood Pressure Mean [Right Arm] 87 Blood Pressure Source [Right Arm] Blood Pressure Position [Right Arm] 02 Sat by Pulse Oximetry 93 L Oxygen Delivery Method Oxygen Flow Rate (LPM) 06/20/19 12:42 06/20/19 12:56 06/20/19 13:13 Temperature Temperature Source Pulse Rate [Right] 142 H 138 H Respiratory Rate Blood Pressure [Right Arm] 110/79 Blood Pressure Mean [Right Arm] 89 Blood Pressure Source [Right Arm] Automatic Cuff Blood Pressure Position [Right Arm] Sitting 02 Sat by Pulse Oximetry 97 96 Oxygen Delivery Method Nasal Cannula Nasal Cannula Nasal Cannula Oxygen Flow Rate (LPM) 2 3 3 - Lab Data Lab results reviewed: Yes: I reviewed the patient's lab results. Lab Results 06/20/19 11:43: Specimen Source Left brachial, O2 % 3lpm nc, ABG pH 7.41, ABG pCO2 31.8 L, ABG pO2 24.1 L, ABG HCO3 19.5 L, ABG Total CO2 20.5 L, ABG O2 Saturation 34 L*, ABG Base Excess -5.2 L, Jr Test Non applicable 06/20/19 11:50: Influenza Type A Ag Negative, Influenza Type B Ag Negative Orders (Tests/Meds): ED MEDICATIONS Generic Name Dose Route Start Last Admin Trade Name Fremeliton PRN Reason Stop Dose Admin Acetaminophen 650 mg 06/20/19 13:10 Acetaminophen 325mg Tab PO 07/20/19 13:09 Q4HP PRN As Needed for Fever or Pain Albuterol/Ipratropium 3 ml 06/20/19 13:12 Duoneb 3ml [facility] 07/20/19 13:11 Q4HP PRN Shortness Of Breath Albuterol/Ipratropium 3 ml 06/20/19 13:12 Duoneb 3ml [facility] 07/20/19 13:11 Q1HP PRN Shortness Of Breath Ertapenem 1 gm/ Sodium 50 mls @ 100 mls/hr 06/20/19 12:30 06/20/19 12:57 Chloride IV 07/04/19 12:29 100 mls/hr Q24H VERÓNICA Administration Protocol Sodium Chloride 1,000 mls @ 75 mls/hr 06/20/19 13:15 Sod Chlor 0.9% 1000ml Bag IV 07/20/19 13:14 .[id number] VERÓNICA Ondansetron HCl 4 mg 06/20/19 13:10 Zofran 4mg/2ml Vial IV 07/20/19 13:09 Q8HP PRN Nausea Sodium Chloride 3 ml 06/20/19 12:41 Sodium Chloride 3% 15ml [facility] 07/20/19 12:40 ONCE PRN INDUCE SPUTUM COLLECTION Sodium Chloride 10 ml 06/20/19 13:10 Saline Flush 10ml Syringe IV 07/20/19 13:09 NEEDED PRN Maintain IV Site Discontinued Medications Generic Name Dose Route Start Last Admin Trade Name Freq PRN Reason Stop Dose Admin Albuterol/Ipratropium 3 ml 06/20/19 11:43 06/20/19 12:00 Duoneb 3ml [facility] 06/20/19 11:44 3 ml ONCE ONE Administration Albuterol/Ipratropium 3 ml 06/20/19 13:02 Duoneb 3ml [facility] 06/20/19 13:03 ONCE ONE Sodium Chloride 1,000 mls @ 999 mls/hr 06/20/19 12:00 06/20/19 11:51 Sod Chlor 0.9% 1000ml Bag IV 06/20/19 13:00 999 mls/hr .Q1H1M VERÓNICA Administration Methylprednisolone Sodium Succinate 125 mg 06/20/19 11:47 06/20/19 11:47 Solu-Medrol 125mg/2ml Vial IV 06/20/19 11:48 125 mg ONCE ONE Administration Miscellaneous 1 each 06/20/19 13:15 Vancomycin Consult Request * 07/20/19 13:14 CONSULT PHARMACY VERÓNICA ORDERS Category Date Time Status BNP [B-Type Natriuretic Peptide] Stat Lab 06/20/19 11:42 Ordered Complete Blood Count Auto Diff Stat Lab 06/20/19 11:42 Ordered Comprehensive Metabolic Panel Stat Lab 06/20/19 11:42 Ordered Lactic Acid Stat Lab 06/20/19 11:42 Ordered Magnesium Stat Lab 06/20/19 11:47 Ordered Troponin I Q3H Lab 06/20/19 14:45 Ordered Troponin I Q3H Lab 06/20/19 17:45 Ordered Troponin I Stat Lab 06/20/19 11:42 Ordered Urinalysis and Microscopic Stat Lab 06/20/19 11:42 Ordered Blood Culture Stat Micro 06/20/19 13:01 Ordered Sputum Culture & Gram Stain Stat Micro 06/20/19 12:41 Ordered - Radiology Data #1 Image(s): Chest Image Reviewed: Yes I reviewed the patient's radiology results [address] [place] [address] XRay Report Signed Patient: Jarrett Gonzales MR#: [id number] : 1965 Acct:[id number] Age/Sex: 53 / M ADM Date: 06/20/19 Loc: ER Attending Dr: Ordering Physician: Jose Alvarez III, DO Date of Service: 06/20/19 Procedure(s): XR chest portable Accession Number(s): [id number] cc: Axel Cardona MD; Frederick Murry MD~ PROCEDURE: XR CHEST PORTABLE CLINICAL HISTORY: shortness of breath COMPARISON: XR CHEST PORTABLE from 03/13/2019 CT CHEST W CON from 05/30/2019 FINDINGS: There are widespread bilateral pulmonary opacities suspicious for multifocal pneumonia. Some of the opacities are nodule like and may represent intrapulmonary metastases in this patient with a history of lung carcinoma. Postcontrast CT could further evaluate. Right paratracheal lymphadenopathy is suggested. There is no appreciable pleural effusion. The heart is not enlarged and there is no CHF No acute bony abnormalities. IMPRESSION: Interval worsening with multiple bilateral pulmonary opacities suspicious for multifocal pneumonia and or metastases. Dictated by: Axel Cardona 06/20/2019 12:38 Electronically signed by Axel Cardona in [facility] 06/20/2019 12:38 - ECG Data Tracing #1 I reviewed this ECG and interpreted as documented below: (EKG at 11:42 AM showed a sinus tachycardia with a rate of 145 bpm. Some artifact noted. No acute ST changes.) Medical Decision Narrative: 13:04 patient evaluated and worked up. Case subsequently discussed with Pop Dietrich NP taking call for Dr. Murry today. She is agreed to admit this patient. I have discussed results of work-up, diagnosis and care plan with patient and family. They understand, agree and all questions answered. Patient will now be admitted. General Adult HPI - General Stated complaint: high heart rate and blood pressure Time Seen by Provider: 06/20/19 11:38 Mode of Arrival: Wheelchair Source of Information: Patient, Relative Limitations: No Limitations - History of Present Illness HPI narrative: Patient is here in emergency room for evaluation after he presented to have a second chemotherapy treatment for known lung cancer. Patient was found to have an elevated heart rate and they requested he come here for evaluation. Patient has had some increasing shortness of breath and ZURITA. Patient also states that he has a cough which has become worse over the past few days. Cough is congested and productive. No chest pain or abdominal pain. No vomiting or diarrhea. Patient is afebrile. - Related Data Home Medications Medication Instructions Recorded Confirmed dexamethasone 4 mg tablet 4 mg PO DAILY tab 04/10/19 06/20/19 levetiracetam 500 mg tablet 500 mg PO BID 04/10/19 06/20/19 pantoprazole 40 mg tablet,delayed 40 mg PO BID 04/10/19 06/20/19 release Folic Acid [Folic Acid 1mg tablet] 1 mg PO DAILY 05/10/19 06/20/19 Metoprolol Tartrate [Lopressor 12.5 mg PO BID 05/10/19 06/20/19 25mg tablet] albuterol sulfate 90 mcg/actuation 90 mcg INHALATION DAILY 05/30/19 06/20/19 aerosol inhaler ondansetron HCl 8 mg tablet 8 mg PO NEEDED PRN tab 05/30/19 06/20/19 prochlorperazine maleate 10 mg 10 mg PO DAILY tab 05/30/19 06/20/19 tablet Albuterol Sulfate [Albuterol 2.5 mg INHALATION TID 06/11/19 06/20/19 0.083% 2.5mg/3mL neb] Allergies Allergy/AdvReac Type Severity Reaction Status Date / Time No Known Allergies Allergy Verified 06/20/19 11:42 [facility] History - Hepatitis A Screen Drug use history?: No Attestation statement:: This patient has been screened for Hepatitis A risk factors. I have reviewed the patient's past medical history: Yes Medical History: Reports:: Cancer, Seizures Denies:: Diabetes Mellitus Type 1, Diabetes Mellitus Type 2, Internal Pacemaker, MRSA Other Medical History: Reports: Chemotherapy, Radiation Therapy. Denies: Blood Transfusion Reaction Other Surgeries: Yes: Cancer Surgery, Other. No: Pacemaker Amputation: No Fractures: No Comment: brain shunt - Social History Smoking Status: Former smoker Tobacco Type: cigarettes # Packs/Day (cigarettes): 2 #Yrs smoked (if former smoker): 30 Alcohol Intake: never Substance Use Type: denies use Occupational Status: unemployed Housing: house Household Members: spouse, children Family Hx:: Non-contributory ROS Obtained: Yes All systems reviewed & no additional complaints - Constitutional Constitutional: Reports system reviewed and no additional complaints, except as docu, Reports as per HPI, Denies fever(s) - Eyes Eyes: Reports system reviewed and no additional complaints, except as docu - ENT Ears, Nose, Mouth, and Throat: Reports system reviewed and no additional complaints, except as docu - Cardiovascular Cardiovascular: Reports system reviewed and no additional complaints, except as docu, Reports as per HPI, Denies chest pain, Denies chest pain at rest, Reports dyspnea, Reports leg edema (mild bilateral lower leg) - Respiratory Respiratory: Yes system reviewed and no additional complaints, except as docu, Yes as per HPI, Yes chest congestion, Yes cough, Yes dyspnea, Yes dyspnea on exertion, Yes other (lung cancer) - Gastrointestinal Gastrointestingal: Reports: system reviewed and no additional complaints, except as docu - Genitourinary Male Genitourinary: Reports system reviewed and no additional complaints, except as docu - Musculoskeletal Musculoskeletal: Reports system reviewed and no additional complaints, except as docu - Integumentary/Breasts Skin/Breast: Reports system reviewed and no additional complaints, except as docu - Neurologic Neurologic: Reports system reviewed and no additional complaints, except as docu - Endocrine Endocrine: Reports system reviewed and no additional complaints, except as docu - Hematologic/Lymphatic Henatologic/Lymphatic: Reports system reviewed and no additional complaints, except as docu - Allergic/Immunologic Allergic/Immunologic: Reports system reviewed and no additional complaints, except as docu Physical Exam - General General appearance: alert - Head Head exam: atraumatic, normocephalic, normal inspection - Eye Eye exam: Present: PERRL, EOMI - ENT ENT exam: Present: mucous membranes moist - Neck Neck exam: Present: trachea midline - Chest Chest inspection: Present: normal inspection. Absent: tenderness - Respiratory Respiratory exam: Present: other (Diminished BS bilaterally with diffuse rhonchi and end-expiratory wheezing. (+) rhonchus, congested cough.). Absent: stridor - Cardiovascular Cardiovascular exam: Present: tachycardia. Absent: normal heart sounds, gallop - Abdominal Exam Abdominal exam: Present: soft, normal bowel sounds. Absent: distention, tenderness, rebound - Extremities Exam Extremities exam: Present: full ROM, other (Mild bilateral lower leg edema) - Neurological Exam Neurological exam: Present: alert, oriented X3, CN II-XII intact - Psychiatric Psychiatric exam: Present: normal mood, flat affect - Skin Skin exam: Present: warm, dry, intact. Absent: rash
[2019-06-20 12:20] LABS: ABG Base Excess -5.2 mmol/L (-2.4-2.3); ABG HCO3 19.5 mmhg (22.0-26.0); ABG Oxygen Saturation 34 % (90-100); ABG PCO2 31.8 mmhg (35.0-45.0); ABG PH 7.41 mmol/L (7.35-7.45); ABG TCO2 20.5 mmhg (23-27)
[2019-06-20 12:23] LABS: Allen's Test Non Applicable
[2019-06-20 12:24] LABS: ABG PO2 24.1 mmhg (80-100)
--- NOTE | 2019-06-20 13:13 | Pharmacy Consult Notes ---
- Pharmacy Consult Date: 06/20/19 Time: 13:11 Referring provider: DR. WILLIS Reason for Consult:: VANCOMYCIN DOSING Allergies and ADEs:: Allergies Allergy/AdvReac Type Severity Reaction Status Date / Time No Known Allergies Allergy Verified 06/20/19 11:42 Home Medications:: Home Medications Medication Instructions Recorded Confirmed Type dexamethasone 4 mg tablet 4 mg PO DAILY tab 04/10/19 06/11/19 History levetiracetam 500 mg tablet 500 mg PO BID 04/10/19 06/11/19 History pantoprazole 40 mg tablet,delayed 40 mg PO BID 04/10/19 06/11/19 History release Folic Acid [Folic Acid 1mg tablet] 1 mg PO DAILY 05/10/19 06/11/19 History Metoprolol Tartrate [Lopressor 12.5 mg PO BID 05/10/19 06/11/19 History 25mg tablet] albuterol sulfate 90 mcg/actuation 90 mcg INHALATION DAILY 05/30/19 06/11/19 History aerosol inhaler ondansetron HCl 8 mg tablet 8 mg PO NEEDED PRN tab 05/30/19 06/11/19 History prochlorperazine maleate 10 mg 10 mg PO DAILY tab 05/30/19 06/11/19 History tablet Albuterol Sulfate [Albuterol 2.5 mg INHALATION TID 06/11/19 06/11/19 History 0.083% 2.5mg/3mL neb] Height: 1.85 m Weight: 82.554 kg Laboratory Results:: Laboratory Results - last 24 hr 06/20/19 11:43: Specimen Source Left brachial, O2 % 3lpm nc, ABG pH 7.41, ABG pCO2 31.8 L, ABG pO2 24.1 L, ABG HCO3 19.5 L, ABG Total CO2 20.5 L, ABG O2 Saturation 34 L*, ABG Base Excess -5.2 L, Jr Test Non applicable 06/20/19 11:50: Influenza Type A Ag Negative, Influenza Type B Ag Negative Medical History: Reports:: Cancer (lung), Seizures Denies:: Diabetes Mellitus Type 1, Diabetes Mellitus Type 2, Internal Pacemaker, MRSA Assessment and Plan - Assessment and plan all Dx Assessment and Plan for all problems:: BASED ON PATIENT'S FACTORS, RECOMMEND STARTING WITH VANCOMYCIN 1750 MG Q12H AT THIS TIME. PHARMACY WILL FOLLOW DAILY AND ADJUST APPROPRIATE.
[2019-06-20 14:02] LABS: Basophils % 0.2 % (0.1-2.0); Eosinophils % 0.1 % (0.1-12.0); Hematocrit 30.2 % (42.0-52.0); Hemoglobin 9.5 g/dL (14.1-18.0); Lymphocytes # 0.5 K/mm3 (0.7-4.5); Lymphocytes % 1.9 % (10-50); Mean Corpuscular HGB Conc 31.4 g/dL (31.8-35.4); Mean Corpuscular Volume 90.4 fl (80-94); Mean Platelet Volume 8.7 fl (7.4-10.4); Monocytes # 0.6 K/mm3 (0.1-1.0); Monocytes % 2.2 % (1.7-9.3); Neutrophils # 24.7 K/mm3 (1.8-7.8); Neutrophils % 95.7 % (37.0-80.0); Platelet Count 589 K/mm3 (142-424); Red Blood Count 3.34 M/mm3 (4.60-6.20); Red Cell Distribution Width 16.2 % (11.5-17.5)
[2019-06-20 14:08] LABS: Alanine Aminotransferase 14 U/L (12-78); Albumin Level 1.5 gm/dL (3.4-5.0); Albumin/Globulin Ratio 0.3 (1.1-1.8); Alkaline Phosphatase 145 U/L (46-116); Anion Gap 18.8 mEq/L (5-15); Aspartate Amino Transferase 20 U/L (15-37); Bilirubin,Total 0.3 mg/dL (0.2-1.0); Blood Urea Nitrogen 34 mg/dL (7-18); Calcium 8.3 mg/dL (8.5-10.1); Carbon Dioxide 24 mmol/L (21.0-32.0); Chloride 97 mmol/L (98-107); Globulin 4.8 gm/dl (1.3-3.2); Glucose 99 mg/dL (74-106); Sodium 136 mmol/L (136-145); Total Protein,Serum 6.3 gm/dL (6.4-8.2)
[2019-06-20 14:10] LABS: White Blood Count 24.8 K/mm3 (4.8-10.8)
--- NOTE | 2019-06-20 16:00 | Pharmacy Consult Notes ---
[facility] Pharmacy VTE Monitoring - Patient Demographics Admission date: 06/20/19 Report Date: 06/20/19 Time: 16:00 Allergies/Adverse Reactions: Patient Allergies No Known Allergies Allergy (Verified 06/20/19 11:42) Height: 1.85 m Weight: 79.917 kg Patient Problems: Current Active Problems Pneumonia (Acute) COPD with acute exacerbation (Acute) Metastatic primary lung cancer (Acute) - VTE Risk Labs: VTE Related Lab Results Hgb 9.5 g/dL (14.1-18.0) L 06/20/19 13:30 Hct 30.2 % (42.0-52.0) L 06/20/19 13:30 Plt Count 589 K/mm3 (142-424) H 06/20/19 13:30 BUN 34 mg/dL (7-18) H 06/20/19 13:30 Creatinine 1.05 mg/dL (0.70-1.30) D 06/20/19 13:30 Estimated Creat Clear 93 mL/min (50-200) 06/20/19 13:30 Was VTE Risk Assessment Performed: Yes VTE Score: 8 VTE Risk Level: Moderate Risk Clinical Trial Participant: No - Prophylaxis VTE Prophylaxis Ordered?: Yes Types of VTE Prophylaxis: TEDS Knee High
[2019-06-20 21:30] LABS: Microscopic, Urine URINE MICROSCOPIC (MICROSCOPIC)
[2019-06-20 21:33] LABS: Appearance,Urine CLEAR (Clear); Blood, Urine Negative (Negative); Color,Urine YELLOW (Yellow); Glucose,Urine (UA) Negative (Negative); Ketones,Urine TRACE (Negative); Leukocyte Esterase,Urine Negative (Negative); Protein,Urine 1+ (Negative); Specific Gravity, Urine >= 1.030 (1.005-1.030)
[2019-06-20 21:51] LABS: Bilirubin,Urine Negative (Negative)
[2019-06-20 21:52] LABS: Bacteria,Urine Trace /lpf; Squamous Epithelial Cell,Urine Occasional #/hpf (0-5); WBC,Urine Occasional #/hpf (0-3)
[2019-06-21 07:33] LABS: Anion Gap 14.7 mEq/L (5-15)
[2019-06-21 07:51] LABS: Basophils % 0.1 % (0.1-2.0); Hematocrit 28.8 % (42.0-52.0); Hemoglobin 8.9 g/dL (14.1-18.0); Lymphocytes # 0.7 K/mm3 (0.7-4.5); Lymphocytes % 3.1 % (10-50); Mean Corpuscular Volume 91.9 fl (80-94); Monocytes # 0.7 K/mm3 (0.1-1.0); Monocytes % 3.1 % (1.7-9.3); Neutrophils # 21.4 K/mm3 (1.8-7.8); Neutrophils % 93.6 % (37.0-80.0); Platelet Count 537 K/mm3 (142-424); Red Blood Count 3.13 M/mm3 (4.60-6.20); Red Cell Distribution Width 16.2 % (11.5-17.5); White Blood Count 22.9 K/mm3 (4.8-10.8)
--- NOTE | 2019-06-21 08:47 | Consult Report ---
History of Present Illness Consult date: 06/21/19 Requesting physician: Frederick Murry Consult reason: shortness of breath Chief complaint: SOA, tachycardia Additional Medical History:: 1. Metastatic lung cancer to brain, 02/2019, s/p surgery of brain with shunt placement A. s/p XRT and one round of chemo B. history of seizures 2. HTN 3. History of tachycardia, on metoprolol 4. Ex smoker, 2 ppd for 30+ yrs, stopped last year 5. Pulmonary embolus on CT of chest, 05/2019, age undetermined 6. Elevated WBC, 05/2019 History of present illness: 53 yo WM with history of metastatic lung cancer to brain presented to ER for SOA. Noted to have elevated heart rate with CT of chest showing either pneumonia or worsening lung cancer. No evidence of [place] by troponins X 3. EKG's show sinus tachycardia. [facility] History Medical History: Reports:: Cancer (lung), Seizures Denies:: Diabetes Mellitus Type 1, Diabetes Mellitus Type 2, Internal Pacemaker, MRSA *Have you ever received a pneumonia vaccine?: No *Have you received a flu vaccine this season?: No Other Medical History: Reports: Chemotherapy, Radiation Therapy. Denies: Blood Transfusion Reaction Other Surgeries: Yes: Cancer Surgery, Other. No: Pacemaker Amputation: No Fractures: No - *Social History Educational Level: Attended High School Smoking Status: Former smoker Tobacco Type: cigarettes # Packs/Day (cigarettes): 1 #Yrs smoked (if former smoker): 30 Smoking End Date: 6 months ago Alcohol Intake: never Substance Use Type: denies use *Occupational Status:: unemployed Housing: house Household Members: spouse, children *Travel in the last 8 weeks: None Family Hx:: Thyroid Disorder Meds Home Medications Medication Instructions Recorded Confirmed Type dexamethasone 4 mg tablet 4 mg PO DAILY tab 04/10/19 06/20/19 History levetiracetam 500 mg tablet 500 mg PO BID 04/10/19 06/20/19 History pantoprazole 40 mg tablet,delayed 40 mg PO BID 04/10/19 06/20/19 History release Folic Acid [Folic Acid 1mg tablet] 1 mg PO DAILY 05/10/19 06/20/19 History Metoprolol Tartrate [Lopressor 12.5 mg PO BID 05/10/19 06/20/19 History 25mg tablet] albuterol sulfate 90 mcg/actuation 2 puff INHALATION Q4HP PRN 05/30/19 06/20/19 History aerosol inhaler ondansetron HCl 8 mg tablet 8 mg PO NEEDED PRN tab 05/30/19 06/20/19 History prochlorperazine maleate 10 mg 10 mg PO DAILY tab 05/30/19 06/20/19 History tablet Albuterol Sulfate [Albuterol 2.5 mg INHALATION TID 06/11/19 06/20/19 History 0.083% 2.5mg/3mL neb] Allergies Allergy/AdvReac Type Severity Reaction Status Date / Time No Known Allergies Allergy Verified 06/20/19 11:42 Review of Systems - Review of Systems Review of systems:: pertinent systems reviewed and negative unless documented below - *Cardiovascular Denies chest pain - *Respiratory Reports chest congestion, Reports cough, Reports shortness of breath - *Gastrointestinal Denies abdominal pain, Denies nausea, Denies vomiting - *Genitourinary Denies blood in urine - *Musculoskeletal Denies joint pain, Denies back pain - *Neurologic Reports weakness, Denies fainting Exam Vital signs and Labs for Last 24 Hours: Temp Pulse Resp BP Pulse Ox 98.1 F 119 H 18 109/68 L 93 L 06/21/19 08:00 06/21/19 08:00 06/21/19 08:00 06/21/19 08:00 06/21/19 08:00 Laboratory Results - last 24 hr 06/20/19 11:43: Specimen Source Left brachial, O2 % 3lpm nc, ABG pH 7.41, ABG pCO2 31.8 L, ABG pO2 24.1 L, ABG HCO3 19.5 L, ABG Total CO2 20.5 L, ABG O2 Saturation 34 L*, ABG Base Excess -5.2 L, Jr Test Non applicable 06/20/19 11:50: Influenza Type A Ag Negative, Influenza Type B Ag Negative 06/20/19 13:30: WBC 24.8 H*, RBC 3.34 L, Hgb 9.5 L, Hct 30.2 L, MCV 90.4, MCH 28.4, MCHC 31.4 L, RDW 16.2, Plt Count 589 H, MPV 8.7, Neut % (Auto) 95.7 H, Lymph % (Auto) 1.9 L, [place] % (Auto) 2.2, Eos % (Auto) 0.1, Baso % (Auto) 0.2, Neut # (Auto) 24.7 H, Lymph # (Auto) 0.5 L, [place] # (Auto) 0.6, Eos # (Auto) 0.0, Baso # (Auto) 0.0 06/20/19 13:30: Sodium 136, Potassium 3.8, Chloride 97 L, Carbon Dioxide 24, Anion Gap 18.8 H, BUN 34 H, Creatinine 1.05 D, Estimated Creat Clear 93, Estimated GFR 74, Est GFR ( Amer) 90, Glucose 99, Calcium 8.3 L, Total Bilirubin 0.3, AST 20 D, ALT 14, Alkaline Phosphatase 145 H, Troponin I < 0.02, Total Protein 6.3 L, Albumin 1.5 L, Globulin 4.8 H, Albumin/Globulin Ratio 0.3 L 06/20/19 13:30: Lactate 2.0 06/20/19 13:30: B-Natriuretic Peptide 177 H 06/20/19 13:30: Magnesium 2.2 06/20/19 14:40: Troponin I < 0.02 06/20/19 18:28: Troponin I < 0.02 06/20/19 21:25: Urine Color Yellow, Urine Appearance Clear, Urine pH 6.0, Ur Specific [place] >= 1.030, Urine Protein 1+, Urine Glucose (UA) Negative, Urine Ketones Trace, Urine Blood Negative, Urine Nitrate Negative, Urine Bilirubin Negative, Urine Urobilinogen 1.0, Ur Leukocyte Esterase Negative, Urine WBC Occasional, Ur Squamous Epith Cells Occasional, Urine Bacteria Trace 06/21/19 06:31: WBC 22.9 H*, RBC 3.13 L, Hgb 8.9 L, Hct 28.8 L, MCV 91.9, MCH 28.5, MCHC 31.0 L, RDW 16.2, Plt Count 537 H, MPV 9.0, Neut % (Auto) 93.6 H, Lymph % (Auto) 3.1 L, [place] % (Auto) 3.1, Eos % (Auto) 0.0 L, Baso % (Auto) 0.1, Neut # (Auto) 21.4 H, Lymph # (Auto) 0.7, [place] # (Auto) 0.7, Eos # (Auto) 0.0, Baso # (Auto) 0.0 06/21/19 06:31: Sodium 137, Potassium 3.7, Chloride 103, Carbon Dioxide 23, Anion Gap 14.7, BUN 21 H D, Creatinine 0.61 L D, Estimated Creat Clear 167, Estimated GFR 139, Est GFR ( Amer) 168 D, Glucose 100, Calcium 8.0 L I & O for Last 24 hours: Intake & Output 06/18/19 06/19/19 06/20/19 06/21/19 11:59 11:59 11:59 11:59 Intake Total 2750 / 2750 Output Total 550 / 550 Balance 2200 / 2200 Weight 182 lb 183 lb 8 oz Microbiology Reports for the Last 24 Hours: Microbiology 06/20/19 14:45 Sputum - Expectorated Sputum Gram Stain - Final - *Routine HEENT Exam Head: Present: normocephalic Eye: Present: EOMI, PERRL ENT: Present: mucous membranes moist - *Routine Neck Exam Present: supple. Absent: JVD, carotid bruit - *Routine Respiratory Exam Present: decreased breath sounds, rhonchi, wheezes. Absent: accessory muscle use, rales - *Routine Cardiovascular Exam Present: RRR, tachycardia. Absent: murmur, gallop, rubs - *Routine Abdominal Exam Present: soft. Absent: tenderness, distended, guarding - *Routine Extremities Exam Present: edema. Absent: calf tenderness - *Routine Neurological Exam Present: alert, oriented X3, moving all extremities Assessment and Plan (1) Sinus tachycardia Current visit: Yes Status: Acute Category: Medical Code(s): R00.0 - Tachycardia, unspecified (2) Metastatic primary lung cancer Current visit: Yes Status: Acute Qualifiers: Laterality: unspecified laterality Qualified Code(s): C34.90 - Malignant neoplasm of unspecified part of unspecified bronchus or lung Category: Medical Code(s): C34.90 - Malignant neoplasm of unspecified part of unspecified bronchus or lung (3) Pneumonia Current visit: Yes Status: Acute Qualifiers: Pneumonia type: due to unspecified organism Laterality: bilateral Lung location: unspecified part of lung Qualified Code(s): J18.9 - Pneumonia, unspecified organism Category: Medical Code(s): J18.9 - Pneumonia, unspecified organism (4) COPD (chronic obstructive pulmonary disease) Current visit: No Status: Acute Category: Medical Code(s): J44.9 - Chronic obstructive pulmonary disease, unspecified (5) Tobacco abuse Current visit: No Status: Acute Category: Medical Code(s): Z72.0 - Tobacco use (6) Thrombocytosis Current visit: Yes Status: Acute Category: Medical Code(s): D47.3 - Essential (hemorrhagic) thrombocythemia (7) Anemia Current visit: Yes Status: Acute Category: Medical Code(s): D64.9 - Anemia, unspecified - Assessment and plan all Dx Assessment and Plan for all problems:: 1. Tachycardia secondary to metastatic lung cancer to brain with abnormal CT earlier this month including PE and pneumonia. Concern for recurrent PE and/or cardiomyopathy after chemotherapy. Will get echo and LE venous dopplers. Start lovenox and monitor anemia. Would not increase beta jayy. 2. Pneumonia and elevated WBC, on abx 3. anemia, check stool for occult blood 4. SOA/tachypnea, multi-factorial including lung CA, brain metastasis, pneumonia and possible lactic acidosis in setting of respiratory alkalosis and metabolic acidosis 5. thrombocytosis, related to lung disease 6. Poor prognosis, consider hospice Discussed with Dr. Swain
--- NOTE | 2019-06-21 09:09 | History & Physical Report ---
*Admission Date: 06/20/19 *Chief complaint: soa *History of present illness: 53 yo male presents to ed with c/o of soa with history of metastatic lung cancer to brain pt was sent to emergency room for evaluation after he presented to have a second chemotherapy treatment for known lung cancer and was found to have an elevated heart rate and they requested he come here for evaluation. Patient has had some increasing shortness of breath and ZURITA. Patient also states that he has a cough which has become worse over the past few days. Cough is congested and productive. No chest pain or abdominal pain. No vomiting or diarrhea. Patient is afebrile. [facility] History I have reviewed the patient's past medical history: Yes Medical History: Reports:: Cancer (lung), Seizures Denies:: Diabetes Mellitus Type 1, Diabetes Mellitus Type 2, Internal P acemaker, MRSA *Have you ever received a pneumonia vaccine?: No *Have you received a flu vaccine this season?: No Other Medical History: Reports: Chemotherapy, Radiation Therapy. Denies: Blood Transfusion Reaction Other Surgeries: Yes: Cancer Surgery, Other. No: Pacemaker Amputation: No Fractures: No - *Social History Educational Level: Attended High School Smoking Status: Former smoker Tobacco Type: cigarettes # Packs/Day (cigarettes): 1 #Yrs smoked (if former smoker): 30 Smoking End Date: 6 months ago Alcohol Intake: never Substance Use Type: denies use *Occupational Status:: unemployed Housing: house Household Members: spouse, children *Travel in the last 8 weeks: None Family Hx:: Thyroid Disorder Review of Systems - Constitutional Denies body ache(s), Denies fever(s) - Eyes Denies change in vision - ENT Denies post nasal drip - *Cardiovascular Reports shortness of breath, Reports shortness of breath with activity, Denies chest pain with activity - *Respiratory Reports shortness of breath, Reports shortness of breath with activity - *Gastrointestinal Denies nausea, Denies vomiting - *Musculoskeletal Denies joint pain - Integumentary/Breasts Denies rash - *Neurologic Reports weakness, Denies behavioral changes, Denies fainting - Endocrine Denies excessive sweating - Hematologic/Lymphatic Denies easy bruising - Allergic/Immunologic Denies itchy eyes Meds Home Medications Medication Instructions Recorded Confirmed Type dexamethasone 4 mg tablet 4 mg PO DAILY tab 04/10/19 06/20/19 History levetiracetam 500 mg tablet 500 mg PO BID 04/10/19 06/20/19 History pantoprazole 40 mg tablet,delayed 40 mg PO BID 04/10/19 06/20/19 History release Folic Acid [Folic Acid 1mg tablet] 1 mg PO DAILY 05/10/19 06/20/19 History Metoprolol Tartrate [Lopressor 12.5 mg PO BID 05/10/19 06/20/19 History 25mg tablet] albuterol sulfate 90 mcg/actuation 2 puff INHALATION Q4HP PRN 05/30/19 06/20/19 History aerosol inhaler ondansetron HCl 8 mg tablet 8 mg PO NEEDED PRN tab 05/30/19 06/20/19 History prochlorperazine maleate 10 mg 10 mg PO DAILY tab 05/30/19 06/20/19 History tablet Albuterol Sulfate [Albuterol 2.5 mg INHALATION TID 06/11/19 06/20/19 History 0.083% 2.5mg/3mL neb] Allergies Allergy/AdvReac Type Severity Reaction Status Date / Time No Known Allergies Allergy Verified 06/20/19 11:42 Exam Vital signs and Labs for Last 24 Hours: Temp Pulse Resp BP Pulse Ox 98.1 F 119 H 18 109/68 L 93 L 06/21/19 08:00 06/21/19 08:00 06/21/19 08:00 06/21/19 08:00 06/21/19 08:00 Laboratory Results - last 24 hr 06/20/19 11:43: Specimen Source Left brachial, O2 % 3lpm nc, ABG pH 7.41, ABG pCO2 31.8 L, ABG pO2 24.1 L, ABG HCO3 19.5 L, ABG Total CO2 20.5 L, ABG O2 Saturation 34 L*, ABG Base Excess -5.2 L, Jr Test Non applicable 06/20/19 11:50: Influenza Type A Ag Negative, Influenza Type B Ag Negative 06/20/19 13:30: WBC 24.8 H*, RBC 3.34 L, Hgb 9.5 L, Hct 30.2 L, MCV 90.4, MCH 28.4, MCHC 31.4 L, RDW 16.2, Plt Count 589 H, MPV 8.7, Neut % (Auto) 95.7 H, Lymph % (Auto) 1.9 L, [place] % (Auto) 2.2, Eos % (Auto) 0.1, Baso % (Auto) 0.2, Neut # (Auto) 24.7 H, Lymph # (Auto) 0.5 L, [place] # (Auto) 0.6, Eos # (Auto) 0.0, Baso # (Auto) 0.0 06/20/19 13:30: Sodium 136, Potassium 3.8, Chloride 97 L, Carbon Dioxide 24, Anion Gap 18.8 H, BUN 34 H, Creatinine 1.05 D, Estimated Creat Clear 93, Estimated GFR 74, Est GFR ( Amer) 90, Glucose 99, Calcium 8.3 L, Total Bilirubin 0.3, AST 20 D, ALT 14, Alkaline Phosphatase 145 H, Troponin I < 0.02, Total Protein 6.3 L, Albumin 1.5 L, Globulin 4.8 H, Albumin/Globulin Ratio 0.3 L 06/20/19 13:30: Lactate 2.0 06/20/19 13:30: B-Natriuretic Peptide 177 H 06/20/19 13:30: Magnesium 2.2 06/20/19 14:40: Troponin I < 0.02 06/20/19 18:28: Troponin I < 0.02 06/20/19 21:25: Urine Color Yellow, Urine Appearance Clear, Urine pH 6.0, Ur Specific [place] >= 1.030, Urine Protein 1+, Urine Glucose (UA) Negative, Urine Ketones Trace, Urine Blood Negative, Urine Nitrate Negative, Urine Bilirubin Negative, Urine Urobilinogen 1.0, Ur Leukocyte Esterase Negative, Urine WBC Occasional, Ur Squamous Epith Cells Occasional, Urine Bacteria Trace 06/21/19 06:31: WBC 22.9 H*, RBC 3.13 L, Hgb 8.9 L, Hct 28.8 L, MCV 91.9, MCH 28.5, MCHC 31.0 L, RDW 16.2, Plt Count 537 H, MPV 9.0, Neut % (Auto) 93.6 H, Lymph % (Auto) 3.1 L, [place] % (Auto) 3.1, Eos % (Auto) 0.0 L, Baso % (Auto) 0.1, Neut # (Auto) 21.4 H, Lymph # (Auto) 0.7, [place] # (Auto) 0.7, Eos # (Auto) 0.0, Baso # (Auto) 0.0 06/21/19 06:31: Sodium 137, Potassium 3.7, Chloride 103, Carbon Dioxide 23, Anion Gap 14.7, BUN 21 H D, Creatinine 0.61 L D, Estimated Creat Clear 167, Estimated GFR 139, Est GFR ( Amer) 168 D, Glucose 100, Calcium 8.0 L I & O for Last 24 hours: Intake & Output 06/18/19 06/19/19 06/20/19 06/21/19 11:59 11:59 11:59 11:59 Intake Total 2750 / 2750 Output Total 550 / 550 Balance 2200 / 2200 Weight 182 lb 183 lb 8 oz Microbiology Reports for the Last 24 Hours: Microbiology 06/20/19 14:45 Sputum - Expectorated Sputum Gram Stain - Final - Constitutional no acute distress, chronically ill appearing - *Routine HEENT Exam Head: Present: normocephalic Eye: Present: PERRL ENT: Present: mucous membranes moist - *Routine Neck Exam Present: supple. Absent: lymphadenopathy - *Routine Respiratory Exam Present: decreased breath sounds, rhonchi - *Routine Cardiovascular Exam Present: RRR - *Routine Abdominal Exam Present: soft, normoactive bowel sounds. Absent: tenderness - *Routine Extremities Exam Present: edema. Absent: cyanosis, clubbing Comments: rt lower leg edema - *Routine Skin Exam Present: warm. Absent: rash - *Routine Neurological Exam Present: alert, oriented X3 - Routine Psychiatric Exam Present: normal affect Assessment and Plan (1) Sinus tachycardia Current visit: Yes Status: Acute Category: Medical Code(s): R00.0 - Ta chycardia, unspecified (2) Metastatic primary lung cancer Current visit: Yes Status: Acute Qualifiers: Laterality: unspecified laterality Qualified Code(s): C34.90 - Malignant neoplasm of unspecified part of unspecified bronchus or lung Category: Medical Code(s): C34.90 - Malignant neoplasm of unspecified part of unspecified bronchus or lung (3) Pneumonia Current visit: Yes Status: Acute Qualifiers: Pneumonia type: due to unspecified organism Laterality: bilateral Lung location: unspecified part of lung Qualified Code(s): J18.9 - Pneumonia, unspecified organism Category: Medical Code(s): J18.9 - Pneumonia, unspecified organism (4) COPD (chronic obstructive pulmonary disease) Current visit: No Status: Acute Category: Medical Code(s): J44.9 - Chronic obstructive pulmonary disease, unspecified (5) Tobacco abuse Current visit: No Status: Acute Category: Medical Code(s): Z72.0 - Tobacco use (6) Thrombocytosis Current visit: Yes Status: Acute Category: Medical Code(s): D47.3 - Essential (hemorrhagic) thrombocythemia (7) Anemia Current visit: Yes Status: Acute Category: Medical Code(s): D64.9 - Anemia, unspecified - Assessment and plan all Dx Assessment and Plan for all problems:: Dr morse will round later today, discussed pt with lito all orders per lito ct chest p/o pe
[2019-06-21 09:51] LABS: Lymphocytes % 4 % (10-50); Monocytes % 3 % (2-9); Neutrophils % 93 % (42-76); Total Cells Counted 100
[2019-06-21 09:52] LABS: Hypochromasia 1+
--- NOTE | 2019-06-21 10:56 | Cardiology Report ---
APPROVED REPORT Bilateral Lower Extremity Venous Study for DVT. Dipper And Baker: Anali Elias, RVT Indications Lower Extremity Edema: Bilateral Pulmonary Embolism Shortness of breath Risk Factors Malignancy History of Smoking Pt has lung cancer with mets, pt on chemo Vein Imaging CFV (R): Partially Compressible, Thrombus,Partial flow FEM (R): Partially Compressible, Thrombus,Partial flow POP (R): compressive, spontaneous, phasic, augmentation PTV (R): Compressible GSV (R): Compressible Peroneals (R):Compressible GAS (R): Compressible CFV (L): compressive, spontaneous, phasic, augmentation FEM (L): compressive, spontaneous, phasic, augmentation POP (L): compressive, spontaneous, phasic, augmentation PTV (L): compressive, spontaneous, phasic, augmentation GSV (L): compressive, spontaneous, phasic, augmentation Peroneals (L):Compressible GAS (L): Compressible Findings Partially occluding thrombus seen in the right common femoral and femoral vein of the right lower extremity. No DVT seen in the remaining right lower extremity deep veins. No SVT seen right lower extremity. No DVT seen in the left lower extremity. No SVT seen in the left lower extremity. Conclusion Partially occluding thrombus seen in the right common femoral and femoral vein of the right lower extremity. No DVT seen in the remaining right lower extremity deep veins. No SVT seen right lower extremity. No DVT seen in the left lower extremity. No SVT seen in the left lower extremity. Critical Notification Critical Value: Yes Physician Notified Date: 06/21/2019 Time: 9:30 am Physician Name: Tao Dietrich Electronically signed by : Axel Cardona, 06/21/2019 10:56:38
--- NOTE | 2019-06-21 13:46 | Cardiology Report ---
APPROVED REPORT EXAM: Comprehensive 2D, Doppler, and color-flow Echocardiogram Ged Teacher: Rosy Mitchell RT(R) Ht: 6 ft 1 in Wt: 183lbs BSA: 2.07 BP: 109/68 mmHg Indications: Shortness of Breath, Dyspnea, Hypertension/HDD, Lung CA, mets to brain,tachycardia,chemo,edema 2D Dimensions LVOT 1.94 cm (M/F) 1.5-2.5 M-Mode Dimensions RVDd 3.21 cm (0.9-2.6)LVDd 4.12 cm (3.5-5.7) LVDs 3.15 cm (3.5-5.7)IVSd 1.00 cm (0.6-1.1) PWd 0.74 cm (0.6-1.1)EF (Teich) 47.50% FS 23.50% EDV (Teich) 75.10 mL ESV (Teich) 39.40 mL LV Diastology E/A Ratio 3.78 Mitral Valve MV A Velocity 24.00 (40-130 cm/s) Left Ventricle Left atrium is mildly enlarged, left ventricle is normal size, mild concentric left ventricular hypertrophy, visually estimated ejection fraction 55% with no regional wall motion abnormality, diastolic parameters are inconclusive. Right Ventricle Right atrium and right ventricle mildly enlarged with normal contractility. Aortic Valve Aortic valve is minimally thickened and fibrosed. There is no aortic stenosis or aortic insufficiency. Mitral Valve Mitral valve is grossly normal, there is mild mitral regurgitation. Tricuspid Valve Tricuspid valve grossly normal, there is mild tricuspid regurgitation, tricuspid regurgitation jet velocity is inadequate for calculation of the right ventricular systolic pressure. Pulmonic Valve Pulmonic valve is poorly visualized. Great Vessels Aortic root is normal size. Pericardium No significant pericardial effusion noted. Conclusion 1. Mildly enlarged left atrium, normal left ventricular size, mild concentric left ventricular hypertrophy, visually estimated ejection fraction 55% with no regional wall motion abnormality, diastolic parameters are inconclusive. 2. Mildly enlarged right ventricle with normal contractility. 3. Mild mitral and tricuspid regurgitation. 4. No significant pericardial effusion noted. Electronically signed by : Velasquez Arroyo, 06/21/2019 13:46:04
[2019-06-22 06:38] LABS: Basophils % 0.1 % (0.1-2.0); Hematocrit 25.9 % (42.0-52.0); Hemoglobin 8.1 g/dL (14.1-18.0); Lymphocytes # 0.6 K/mm3 (0.7-4.5); Lymphocytes % 2.9 % (10-50); Mean Corpuscular HGB Conc 31.2 g/dL (31.8-35.4); Mean Corpuscular Volume 92.2 fl (80-94); Monocytes # 0.6 K/mm3 (0.1-1.0); Monocytes % 3.1 % (1.7-9.3); Neutrophils # 18.7 K/mm3 (1.8-7.8); Neutrophils % 93.9 % (37.0-80.0); Platelet Count 515 K/mm3 (142-424); Red Blood Count 2.81 M/mm3 (4.60-6.20); White Blood Count 19.9 K/mm3 (4.8-10.8)
[2019-06-22 06:51] LABS: Albumin Level 1.1 gm/dL (3.4-5.0); Albumin/Globulin Ratio 0.3 (1.1-1.8); Anion Gap 14.6 mEq/L (5-15); Bilirubin,Total 0.3 mg/dL (0.2-1.0); Globulin 4.1 gm/dl (1.3-3.2); Total Protein,Serum 5.2 gm/dL (6.4-8.2)
[2019-06-22 07:49] LABS: Lymphocytes % 3 % (10-50); Myelocytes % 1 (0-1); Neutrophils % 94 % (42-76); Stomatocytes 1+; Total Cells Counted 100
--- NOTE | 2019-06-22 10:00 | Progress Note ---
Internal Medicine - PN: Subj *Date: 06/22/19 *Time: 09:58 Interval history: awake - no specific c/o Exam Vital signs and Labs for Last 24 Hours: Temp Pulse Resp BP Pulse Ox 98.7 F 109 H 18 140/87 94 L 06/22/19 08:00 06/22/19 08:00 06/22/19 08:00 06/22/19 08:00 06/22/19 08:00 Laboratory Results - last 24 hr 06/21/19 10:04: Lactate 1.4 06/22/19 02:47: Vancomycin Trough 17.8 06/22/19 06:07: WBC 19.9 H, RBC 2.81 L, Hgb 8.1 L, Hct 25.9 L, MCV 92.2, MCH 28.8, MCHC 31.2 L, RDW 16.0, Plt Count 515 H, MPV 8.0, Neut % (Auto) 93.9 H, Lymph % (Auto) 2.9 L, [place] % (Auto) 3.1, Eos % (Auto) 0.0 L, Baso % (Auto) 0.1, Neut # (Auto) 18.7 H, Lymph # (Auto) 0.6 L, [place] # (Auto) 0.6, Eos # (Auto) 0.0, Baso # (Auto) 0.0, Total Counted 100, Neutrophils % (Manual) 94 H, Lymphocytes % (Manual) 3 L, Metamyelocytes % 2.0 H, Myelocytes % 1, Platelet Estimate Slight increase, Poikilocytosis 1+, Stomatocytes 1+ 06/22/19 06:07: Sodium 141, Potassium 3.6, Chloride 107, Carbon Dioxide 23, Anion Gap 14.6, BUN 19 H, Creatinine 0.52 L, Estimated Creat Clear 199, Estimated GFR 167, Est GFR ( Amer) 202 D, Glucose 92, Calcium 8.0 L, Total Bilirubin 0.3, AST 16, ALT 11 L, Alkaline Phosphatase 112, Total Protein 5.2 L, Albumin 1.1 L, Globulin 4.1 H, Albumin/Globulin Ratio 0.3 L I & O for Last 24 hours: Intake & Output 06/19/19 06/20/19 06/21/19 06/22/19 11:59 11:59 11:59 11:59 Intake Total 2990 / 2990 3210 / 3210 Output Total 550 / 550 400 / 400 Balance 2440 / 2440 2810 / 2810 Weight 182 lb 183 lb 8 oz 186 lb 6 oz Microbiology Reports for the Last 24 Hours: Microbiology 06/20/19 14:45 Sputum - Expectorated Sputum Gram Stain - Final 06/20/19 14:45 Sputum - Expectorated Sputum Sputum Culture - Preliminary - Constitutional no acute distress - *Routine HEENT Exam Head: Present: normocephalic Eye: Present: EOMI, PERRL ENT: Present: mucous membranes dry - *Routine Neck Exam Present: supple. Absent: JVD - *Routine Respiratory Exam Present: decreased breath sounds - *Routine Cardiovascular Exam Present: RRR, murmur, S4 - *Routine Abdominal Exam Present: soft - *Routine Extremities Exam Present: edema. Absent: calf tenderness - *Routine Skin Exam Present: intact - *Routine Neurological Exam Present: alert, CN II-XII intact - Routine Psychiatric Exam Present: unable to assess Assessment and Plan (1) Sinus tachycardia Current visit: Yes Status: Acute Category: Medical Code(s): R00.0 - Tachycardia, unspecified (2) Metastatic primary lung cancer Current visit: Yes Status: Acute Qualifiers: Laterality: unspecified laterality Qualified Code(s): C34.90 - Malignant neoplasm of unspecified part of unspecified bronchus or lung Category: Medical Code(s): C34.90 - Malignant neoplasm of unspecified part of unspecified bronchus or lung (3) Pneumonia Current visit: Yes Status: Acute Qualifiers: Pneumonia type: due to unspecified organism Laterality: bilateral Lung location: unspecified part of lung Qualified Code(s): J18.9 - Pneumonia, unspecified organism Category: Medical Code(s): J18.9 - Pneumonia, unspecified organism (4) COPD (chronic obstructive pulmonary disease) Current visit: No Status: Acute Category: Medical Code(s): J44.9 - Chronic obstructive pulmonary disease, unspecified (5) Tobacco abuse Current visit: No Status: Acute Category: Medical Code(s): Z72.0 - Tobacco use (6) Thrombocytosis Current visit: Yes Status: Acute Category: Medical Code(s): D47.3 - Essential (hemorrhagic) thrombocythemia (7) Anemia Current visit: Yes Status: Acute Category: Medical Code(s): D64.9 - Anemia, unspecified
--- NOTE | 2019-06-22 13:28 | Pharmacy Consult Notes ---
- Pharmacy Consult Date: 06/22/19 Time: 13:27 Referring provider: DR. LEBRON Reason for Consult:: VANCOMYCIN TROUGH LEVEL Allergies and ADEs:: Allergies Allergy/AdvReac Type Severity Reaction Status Date / Time No Known Allergies Allergy Verified 06/20/19 11:42 Home Medications:: Home Medications Medication Instructions Recorded Confirmed Type dexamethasone 4 mg tablet 4 mg PO DAILY tab 04/10/19 06/20/19 History levetiracetam 500 mg tablet 500 mg PO BID 04/10/19 06/20/19 History pantoprazole 40 mg tablet,delayed 40 mg PO BID 04/10/19 06/20/19 History release Folic Acid [Folic Acid 1mg tablet] 1 mg PO DAILY 05/10/19 06/20/19 History Metoprolol Tartrate [Lopressor 12.5 mg PO BID 05/10/19 06/20/19 History 25mg tablet] albuterol sulfate 90 mcg/actuation 2 puff INHALATION Q4HP PRN 05/30/19 06/20/19 History aerosol inhaler ondansetron HCl 8 mg tablet 8 mg PO NEEDED PRN tab 05/30/19 06/20/19 History prochlorperazine maleate 10 mg 10 mg PO DAILY tab 05/30/19 06/20/19 History tablet Albuterol Sulfate [Albuterol 2.5 mg INHALATION TID 06/11/19 06/20/19 History 0.083% 2.5mg/3mL neb] Height: 1.85 m Weight: 84.538 kg Laboratory Results:: Laboratory Results - last 24 hr 06/22/19 02:47: Vancomycin Trough 17.8 06/22/19 06:07: WBC 19.9 H, RBC 2.81 L, Hgb 8.1 L, Hct 25.9 L, MCV 92.2, MCH 28.8, MCHC 31.2 L, RDW 16.0, Plt Count 515 H, MPV 8.0, Neut % (Auto) 93.9 H, Lymph % (Auto) 2.9 L, [place] % (Auto) 3.1, Eos % (Auto) 0.0 L, Baso % (Auto) 0.1, Neut # (Auto) 18.7 H, Lymph # (Auto) 0.6 L, [place] # (Auto) 0.6, Eos # (Auto) 0.0, Baso # (Auto) 0.0, Total Counted 100, Neutrophils % (Manual) 94 H, Lymphocytes % (Manual) 3 L, Metamyelocytes % 2.0 H, Myelocytes % 1, Platelet Estimate Slight increase, Poikilocytosis 1+, Stomatocytes 1+ 06/22/19 06:07: Sodium 141, Potassium 3.6, Chloride 107, Carbon Dioxide 23, Anion Gap 14.6, BUN 19 H, Creatinine 0.52 L, Estimated Creat Clear 199, Estimated GFR 167, Est GFR ( Amer) 202 D, Glucose 92, Calcium 8.0 L, Total Bilirubin 0.3, AST 16, ALT 11 L, Alkaline Phosphatase 112, Total Protein 5.2 L, Albumin 1.1 L, Globulin 4.1 H, Albumin/Globulin Ratio 0.3 L 06/22/19 12:55: Stool Occult Blood Negative Medical History: Reports:: Cancer (lung), Seizures Denies:: Diabetes Mellitus Type 1, Diabetes Mellitus Type 2, Internal Pacemaker, MRSA Assessment and Plan (1) Sinus tachycardia Current visit: Yes Status: Acute Category: Medical Code(s): R00.0 - Tachycardia, unspecified (2) Metastatic primary lung cancer Current visit: Yes Status: Acute Qualifiers: Laterality: unspecified laterality Qualified Code(s): C34.90 - Malignant n eoplasm of unspecified part of unspecified bronchus or lung Category: Medical Code(s): C34.90 - Malignant neoplasm of unspecified part of unspecified bronchus or lung (3) Pneumonia Current visit: Yes Status: Acute Qualifiers: Pneumonia type: due to unspecified organism Laterality: bilateral Lung location: unspecified part of lung Qualified Code(s): J18.9 - Pneumonia, unspecified organism Category: Medical Code(s): J18.9 - Pneumonia, unspecified organism (4) COPD (chronic obstructive pulmonary disease) Current visit: No Status: Acute Category: Medical Code(s): J44.9 - Chronic obstructive pulmonary disease, unspecified (5) Tobacco abuse Current visit: No Status: Acute Category: Medical Code(s): Z72.0 - Tobacco use (6) Thrombocytosis Current visit: Yes Status: Acute Category: Medical Code(s): D47.3 - Essential (hemorrhagic) thrombocythemia (7) Anemia Current visit: Yes Status: Acute Category: Medical Code(s): D64.9 - Anemia, unspecified - Assessment and plan all Dx Assessment and Plan for all problems:: BASED ON PATIENT'S VANCOMYCIN TROUGH LEVEL OF 17.8 MCG/ML, RECOMMEND CONTINUING WITH CURRENT DOSE OF VANCOMYCIN 1750 MG Q12H AT THIS TIME. PHARMACY WILL FOLLOW DAILY AND ADJUST APPROPRIATE.
--- NOTE | 2019-06-22 19:10 | Electrocardiograph Report ---
APPROVED REPORT Exam: Resting ECG HR:145 bpm ECG Measurements Heart Rate 145 AXES WI 116 P 68 QRSd 66 QRS 62 QT 290 T80 QTc 450 <Conclusion> Sinus tachycardia Otherwise normal ECG Electronically signed by : Lucio Alvarez, 06/22/2019 19:09:59
--- NOTE | 2019-06-23 10:24 | Progress Note ---
Internal Medicine - PN: Subj *Date: 06/24/19 *Time: 07:19 Interval history: sob and aware of dx - still wants treatment - diff to get oob Exam Vital signs and Labs for Last 24 Hours: Temp Pulse Resp BP Pulse Ox 97.6 F 115 H 24 126/71 92 L 06/23/19 08:00 06/23/19 08:00 06/23/19 08:00 06/23/19 08:00 06/23/19 08:00 Laboratory Results - last 24 hr 06/22/19 12:55: Stool Occult Blood Negative I & O for Last 24 hours: Intake & Output 06/20/19 06/21/19 06/22/19 06/23/19 11:59 11:59 11:59 11:59 Intake Total 2990 / 2990 3210 / 3210 3692 / 3692 Output Total 550 / 550 400 / 400 Balance 2440 / 2440 2810 / 2810 3692 / 3692 Weight 182 lb 183 lb 8 oz 186 lb 6 oz 191 lb 6 oz Microbiology Reports for the Last 24 Hours: Microbiology 06/20/19 14:45 Sputum - Expectorated Sputum Gram Stain - Final 06/20/19 14:45 Sputum - Expectorated Sputum Sputum Culture - Preliminary 06/20/19 13:30 Blood Blood Culture - Preliminary NO GROWTH AFTER 48 HOURS 06/20/19 13:01 Blood Blood Culture - Preliminary NO GROWTH AFTER 48 HOURS - Constitutional no acute distress, chronically ill appearing - *Routine HEENT Exam Head: Present: normocephalic Eye: Present: EOMI, PERRL ENT: Present: mucous membranes dry - *Routine Neck Exam Absent: JVD - *Routine Respiratory Exam Present: decreased breath sounds - *Routine Cardiovascular Exam Present: RRR, murmur - *Routine Abdominal Exam Present: soft - *Routine Extremities Exam Absent: edema - *Routine Skin Exam Present: intact - *Routine Neurological Exam Present: alert, CN II-XII intact - Routine Psychiatric Exam Present: normal affect Assessment and Plan (1) Sinus tachycardia Current visit: Yes Status: Acute Category: Medical Code(s): R00.0 - Tachycardia, unspecified (2) Metastatic primary lung cancer Current visit: Yes Status: Acute Qualifiers: Laterality: unspecified laterality Qualified Code(s): C34.90 - Malignant neoplasm of unspecified part of unspecified bronchus or lung Category: Medical Code(s): C34.90 - Malignant neoplasm of unspecified part of unspecified bronchus or lung (3) Pneumonia Current visit: Yes Status: Acute Qualifiers: Pneumonia type: due to unspecified organism Laterality: bilateral Lung location: unspecified part of lung Qualified Code(s): J18.9 - Pneumonia, unspecified organism Category: Medical Code(s): J18.9 - Pneumonia, unspecified organism (4) COPD (chronic obstructive pulmonary disease) Current visit: No Status: Acute Category: Medical Code(s): J44.9 - Chronic obstructive pulmonary disease, unspecified (5) Tobacco abuse Current visit: No Status: Acute Category: Medical Code(s): Z72.0 - Tobacco use (6) Thrombocytosis Current visit: Yes Status: Acute Category: Medical Code(s): D47.3 - Essential (hemorrhagic) thrombocythemia (7) Anemia Current visit: Yes Status: Acute Category: Medical Code(s): D64.9 - Anemia, unspecified
--- NOTE | 2019-06-23 11:04 | Progress Note ---
Internal Medicine - PN: Subj *Date: 06/23/19 *Time: 11:04 Exam Vital signs and Labs for Last 24 Hours: Temp Pulse Resp BP Pulse Ox 97.6 F 115 H 24 126/71 92 L 06/23/19 08:00 06/23/19 08:00 06/23/19 08:00 06/23/19 08:00 06/23/19 08:00 Laboratory Results - last 24 hr 06/22/19 12:55: Stool Occult Blood Negative I & O for Last 24 hours: Intake & Output 06/20/19 06/21/19 06/22/19 06/23/19 23:59 23:59 23:59 23:59 Intake Total 240 / 240 4387 / 4387 3338 / 3388 1926 Output Total 400 / 400 550 / 550 Balance -160 / -160 3837 / 3837 3338 / 3388 1926 Weight 79.917 kg 83.234 kg 84.538 kg 86.806 kg Microbiology Reports for the Last 24 Hours: Microbiology 06/20/19 14:45 Sputum - Expectorated Sputum Gram Stain - Final 06/20/19 14:45 Sputum - Expectorated Sputum Sputum Culture - Preliminary 06/20/19 13:30 Blood Blood Culture - Preliminary NO GROWTH AFTER 48 HOURS 06/20/19 13:01 Blood Blood Culture - Preliminary NO GROWTH AFTER 48 HOURS Assessment and Plan (1) Sinus tachycardia Current visit: Yes Status: Acute Category: Medical Code(s): R00.0 - Tachycardia, unspecified (2) Metastatic primary lung cancer Current visit: Yes Status: Acute Qualifiers: Laterality: unspecified laterality Qualified Code(s): C34.90 - Malignant neoplasm of unspecified part of unspecified bronchus or lung Category: Medical Code(s): C34.90 - Malignant neoplasm of unspecified part of unspecified bronchus or lung (3) Pneumonia Current visit: Yes Status: Acute Qualifiers: Pneumonia type: due to unspecified organism Laterality: bilateral Lung location: unspecified part of lung Qualified Code(s): J18.9 - Pneumonia, unspecified organism Category: Medical Code(s): J18.9 - Pneumonia, unspecified organism (4) COPD (chronic obstructive pulmonary disease) Current visit: No Status: Acute Category: Medical Code(s): J44.9 - Chronic obstructive pulmonary disease, unspecified (5) Tobacco abuse Current visit: No Status: Acute Category: Medical Code(s): Z72.0 - Tobacco use (6) Thrombocytosis Current visit: Yes Status: Acute Category: Medical Code(s): D47.3 - Essential (hemorrhagic) thrombocythemia (7) Anemia Current visit: Yes Status: Acute Category: Medical Code(s): D64.9 - Anemia, unspecified The patient's infection will respond to the chosen ABx?: Yes Is the patient receiving the right drug, dose, and route?: Yes Could a more targeted ABx be ordered?: No (WBC IMPROVED SLIGHTLY)
[2019-06-23 16:42] LABS: Anion Gap 15.8 mEq/L (5-15); Calcium 8.1 mg/dL (8.5-10.1)
[2019-06-24 06:43] LABS: Anion Gap 14.3 mEq/L (5-15); Basophils % 0.1 % (0.1-2.0); Calcium 8.2 mg/dL (8.5-10.1); Eosinophils % 0.1 % (0.1-12.0); Hemoglobin 8.1 g/dL (14.1-18.0); Lymphocytes # 0.5 K/mm3 (0.7-4.5); Lymphocytes % 3.5 % (10-50); Mean Corpuscular HGB Conc 29.9 g/dL (31.8-35.4); Mean Corpuscular Volume 93.6 fl (80-94); Monocytes # 0.4 K/mm3 (0.1-1.0); Monocytes % 2.7 % (1.7-9.3); Neutrophils # 12.6 K/mm3 (1.8-7.8); Neutrophils % 93.6 % (37.0-80.0); Platelet Count 468 K/mm3 (142-424); Red Blood Count 2.88 M/mm3 (4.60-6.20); Red Cell Distribution Width 16.1 % (11.5-17.5); Vancomycin,Trough 15.4 mcg/ml (10.0-20.0); White Blood Count 13.4 K/mm3 (4.8-10.8)
--- NOTE | 2019-06-24 08:53 | Pharmacy Consult Notes ---
- Pharmacy Consult Date: 06/24/19 Time: 08:52 Referring provider: DR. LEBRON Reason for Consult:: VANCOMYCIN TROUGH LEVEL Allergies and ADEs:: Allergies Allergy/AdvReac Type Severity Reaction Status Date / Time No Known Allergies Allergy Verified 06/20/19 11:42 Home Medications:: Home Medications Medication Instructions Recorded Confirmed Type dexamethasone 4 mg tablet 4 mg PO DAILY tab 04/10/19 06/20/19 History levetiracetam 500 mg tablet 500 mg PO BID 04/10/19 06/20/19 History pantoprazole 40 mg tablet,delayed 40 mg PO BID 04/10/19 06/20/19 History release Folic Acid [Folic Acid 1mg tablet] 1 mg PO DAILY 05/10/19 06/20/19 History Metoprolol Tartrate [Lopressor 12.5 mg PO BID 05/10/19 06/20/19 History 25mg tablet] albuterol sulfate 90 mcg/actuation 2 puff INHALATION Q4HP PRN 05/30/19 06/20/19 History aerosol inhaler ondansetron HCl 8 mg tablet 8 mg PO NEEDED PRN tab 05/30/19 06/20/19 History prochlorperazine maleate 10 mg 10 mg PO DAILY tab 05/30/19 06/20/19 History tablet Albuterol Sulfate [Albuterol 2.5 mg INHALATION TID 06/11/19 06/20/19 History 0.083% 2.5mg/3mL neb] Height: 1.85 m Weight: 85.956 kg Laboratory Results:: Laboratory Results - last 24 hr 06/23/19 15:10: Vancomycin Trough 50.4 H* 06/23/19 15:10: Sodium 145, Potassium 3.8, Chloride 110 H, Carbon Dioxide 23, Anion Gap 15.8 H, BUN 19 H, Creatinine 0.68 L D, Estimated Creat Clear 156, Estimated GFR 122, Est GFR ( Amer) 148 D, Glucose 125 H, Calcium 8.1 L 06/24/19 06:01: Sodium 149 H, Potassium 3.3 L, Chloride 111 H, Carbon Dioxide 27, Anion Gap 14.3, BUN 20 H, Creatinine 0.56 L, Estimated Creat Clear 189, Estimated GFR 153, Est GFR ( Amer) 185 D, Glucose 110 H, Calcium 8.2 L, Vancomycin Trough 15.4 06/24/19 06:01: WBC 13.4 H D, RBC 2.88 L, Hgb 8.1 L, Hct 27.0 L, MCV 93.6, MCH 28.0, MCHC 29.9 L, RDW 16.1, Plt Count 468 H, MPV 8.0, Neut % (Auto) 93.6 H, Lymph % (Auto) 3.5 L, [place] % (Auto) 2.7, Eos % (Auto) 0.1, Baso % (Auto) 0.1, Neut # (Auto) 12.6 H, Lymph # (Auto) 0.5 L, [place] # (Auto) 0.4, Eos # (Auto) 0.0, Baso # (Auto) 0.0 Medical History: Reports:: Cancer (lung), Seizures Denies:: Diabetes Mellitus Type 1, Diabetes Mellitus Type 2, Internal Pacemaker, MRSA Assessment and Plan (1) Sinus tachycardia Current visit: Yes Status: Acute Category: Medical Code(s): R00.0 - Tachycardia, unspecified (2) Metastatic primary lung cancer Current visit: Yes Status: Acute Qualifiers: Laterality: unspecified laterality Qualified Code(s): C34.90 - Malignant neoplasm of unspecified part of unspecified bronchus or lung Category: Medical Code(s): C34.90 - Malignant neoplasm of unspecified part of unspecified bronchus or lung (3) Pneumonia Current visit: Yes Status: Acute Qualifiers: Pneumonia type: due to unspecified organism Laterality: bilateral Lung location: unspecified part of lung Qualified Code(s): J18.9 - Pneumonia, unspecified organism Category: Medical Code(s): J18.9 - Pneumonia, unspecified organism (4) COPD (chronic obstructive pulmonary disease) Current visit: No Status: Acute Category: Medical Code(s): J44.9 - Chronic obstructive pulmonary disease, unspecified (5) Tobacco abuse Current visit: No Status: Acute Category: Medical Code(s): Z72.0 - Tobacco use (6) Thrombocytosis Current visit: Yes Status: Acute Category: Medical Code(s): D47.3 - Essential (hemorrhagic) thrombocythemia (7) Anemia Current visit: Yes Status: Acute Category: Medical Code(s): D64.9 - Anemia, unspecified - Assessment and plan all Dx Assessment and Plan for all problems:: BASED ON PATIENT FACTORS AND VANCOMYCIN TROUGH LEVEL LAST NIGHT AND THIS MORNING, RECOMMEND CHANGING VANCOMYCIN TO 1750 MG IV Q24H. PHARMACY WILL CONTINUE TO MONITOR DAILY AND ADJUST APPROPRIATE.
[2019-06-24 09:06] LABS: Lymphocytes % 5 % (10-50); Monocytes % 3 % (2-9); Neutrophils % 92 % (42-76); Total Cells Counted 100
[2019-06-24 09:07] LABS: Hypochromasia 1+
[2019-06-24 09:08] LABS: Stomatocytes 1+
--- NOTE | 2019-06-24 09:10 | Progress Note ---
Internal Medicine - PN: Subj *Date: 06/24/19 *Time: 09:07 Interval history: Patient again ask if he was interested in hospice and patient states not at this time. Patient sitting up in the bed states he did not get up yesterday. Exam Vital signs and Labs for Last 24 Hours: Temp Pulse Resp BP Pulse Ox 97.6 F 130 H 32 H 120/75 93 L 06/24/19 08:00 06/24/19 08:00 06/24/19 08:00 06/24/19 08:00 06/24/19 08:00 Laboratory Results - last 24 hr 06/23/19 15:10: Vancomycin Trough 50.4 H* 06/23/19 15:10: Sodium 145, Potassium 3.8, Chloride 110 H, Carbon Dioxide 23, Anion Gap 15.8 H, BUN 19 H, Creatinine 0.68 L D, Estimated Creat Clear 156, Estimated GFR 122, Est GFR ( Amer) 148 D, Glucose 125 H, Calcium 8.1 L 06/24/19 06:01: Sodium 149 H, Potassium 3.3 L, Chloride 111 H, Carbon Dioxide 27, Anion Gap 14.3, BUN 20 H, Creatinine 0.56 L, Estimated Creat Clear 189, Estimated GFR 153, Est GFR ( Amer) 185 D, Glucose 110 H, Calcium 8.2 L, Vancomycin Trough 15.4 06/24/19 06:01: WBC 13.4 H D, RBC 2.88 L, Hgb 8.1 L, Hct 27.0 L, MCV 93.6, MCH 28.0, MCHC 29.9 L, RDW 16.1, Plt Count 468 H, MPV 8.0, Neut % (Auto) 93.6 H, Lymph % (Auto) 3.5 L, [place] % (Auto) 2.7, Eos % (Auto) 0.1, Baso % (Auto) 0.1, Neut # (Auto) 12.6 H, Lymph # (Auto) 0.5 L, [place] # (Auto) 0.4, Eos # (Auto) 0.0, Baso # (Auto) 0.0 I & O for Last 24 hours: Intake & Output 06/21/19 06/22/19 06/23/19 06/24/19 11:59 11:59 11:59 11:59 Intake Total 2990 / 2990 3210 / 3210 3692 / 3692 1657 / 1657 Output Total 550 / 550 400 / 400 Balance 2440 / 2440 2810 / 2810 3692 / 3692 1657 / 1657 Weight 183 lb 8 oz 186 lb 6 oz 191 lb 6 oz 189 lb 8 oz Microbiology Reports for the Last 24 Hours: Microbiology 06/20/19 14:45 Sputum - Expectorated Sputum Gram Stain - Final 06/20/19 14:45 Sputum - Expectorated Sputum Sputum Culture - Preliminary - Constitutional no acute distress, chronically ill appearing - *Routine HEENT Exam Head: Present: normocephalic Eye: Present: PERRL ENT: Present: mucous membranes moist Comments: shunt in place to rt side of head - *Routine Neck Exam Present: supple. Absent: lymphadenopathy - *Routine Respiratory Exam Present: decreased breath sounds, wheezes, crackles - *Routine Cardiovascular Exam Present: RRR - *Routine Abdominal Exam Present: soft, normoactive bowel sounds. Absent: tenderness - *Routine Extremities Exam Present: edema, full ROM. Absent: cyanosis, clubbing - *Routine Skin Exam Present: warm. Absent: rash - *Routine Neurological Exam Present: alert, oriented X3 - Routine Psychiatric Exam Present: normal affect Assessment and Plan (1) Sinus tachycardia Current visit: Yes Status: Acute Category: Medical Code(s): R00.0 - Tachycardia, unspecified (2) Metastatic primary lung cancer Current visit: Yes Status: Acute Qualifiers: Laterality: unspecified laterality Qualified Code(s): C34.90 - Malignant neoplasm of unspecified part of unspecified bronchus or lung Category: Medical Code(s): C34.90 - Malignant neoplasm of unspecified part of unspecified bronchus or lung (3) Pneumonia Current visit: Yes Status: Acute Qualifiers: Pneumonia type: due to unspecified organism Laterality: bilateral Lung location: unspecified part of lung Qualified Code(s): J18.9 - Pneumonia, unspecified organism Category: Medical Code(s): J18.9 - Pneumonia, unspecified organism (4) COPD (chronic obstructive pulmonary disease) Current visit: No Status: Acute Category: Medical Code(s): J44.9 - Chronic obstructive pulmonary disease, unspecified (5) Tobacco abuse Current visit: No Status: Acute Category: Medical Code(s): Z72.0 - Tobacco use (6) Thrombocytosis Current visit: Yes Status: Acute Category: Medical Code(s): D47.3 - Essential (hemorrhagic) thrombocythemia (7) Anemia Current visit: Yes Status: Acute Category: Medical Code(s): D64.9 - Anemia, unspecified (8) Intracranial shunt Current visit: Yes Status: Acute Category: Surgical Code(s): Z98.2 - Presence of cerebrospinal fluid drainage device - Assessment and plan all Dx Assessment and Plan for all problems:: Rounded with Dr. Murry all orders per Lovely Discussed with Dr. Harris on treatment options PT OT eval
[2019-06-25 06:41] LABS: Basophils % 0.1 % (0.1-2.0); Hematocrit 24.8 % (42.0-52.0); Lymphocytes # 0.2 K/mm3 (0.7-4.5); Lymphocytes % 1.4 % (10-50); Mean Corpuscular HGB Conc 29.5 g/dL (31.8-35.4); Mean Corpuscular Volume 95.8 fl (80-94); Mean Platelet Volume 8.5 fl (7.4-10.4); Monocytes # 0.3 K/mm3 (0.1-1.0); Monocytes % 2.3 % (1.7-9.3); Neutrophils # 14.1 K/mm3 (1.8-7.8); Neutrophils % 96.2 % (37.0-80.0); Platelet Count 408 K/mm3 (142-424); Red Blood Count 2.59 M/mm3 (4.60-6.20); Red Cell Distribution Width 16.4 % (11.5-17.5); White Blood Count 14.7 K/mm3 (4.8-10.8)
[2019-06-25 06:53] LABS: Anion Gap 13.3 mEq/L (5-15); Calcium 8.1 mg/dL (8.5-10.1)
[2019-06-25 06:56] LABS: Hemoglobin 7.3 g/dL (14.1-18.0)
--- NOTE | 2019-06-25 08:44 | Progress Note ---
Internal Medicine - PN: Subj *Date: 06/25/19 *Time: 08:47 Interval history: 53-year-old male patient resting quietly in bed, oxygen on 4.5 L per nasal cannula. He says that he will think about hospice today, he was educated on purpose of hospice Exam Vital signs and Labs for Last 24 Hours: Temp Pulse Resp BP Pulse Ox 97.6 F 91 H 24 132/72 93 L 06/25/19 08:00 06/25/19 08:00 06/25/19 08:00 06/25/19 08:00 06/25/19 08:00 Laboratory Results - last 24 hr 06/24/19 06:01: Total Counted 100, Neutrophils % (Manual) 92 H, Lymphocytes % (Manual) 5 L, Monocytes % (Manual) 3, Platelet Estimate Slight decrease, Hypochromasia 1+, Poikilocytosis 1+, Stomatocytes 1+ 06/25/19 06:25: WBC 14.7 H, RBC 2.59 L, Hgb 7.3 L*, Hct 24.8 L, MCV 95.8 H, MCH 28.3, MCHC 29.5 L, RDW 16.4, Plt Count 408, MPV 8.5, Neut % (Auto) 96.2 H, Lymph % (Auto) 1.4 L, [place] % (Auto) 2.3, Eos % (Auto) 0.0 L, Baso % (Auto) 0.1, Neut # (Auto) 14.1 H, Lymph # (Auto) 0.2 L, [place] # (Auto) 0.3, Eos # (Auto) 0.0, Baso # (Auto) 0.0 06/25/19 06:25: Sodium 151 H*, Potassium 3.3 L, Chloride 114 H, Carbon Dioxide 27, Anion Gap 13.3, BUN 29 H D, Creatinine 0.68 L D, Estimated Creat Clear 155, Estimated GFR 122, Est GFR ( Amer) 148, Glucose 118 H, Calcium 8.1 L I & O for Last 24 hours: Intake & Output 06/22/19 06/23/19 06/24/19 06/25/19 23:59 23:59 23:59 23:59 Intake Total 3338 / 3388 2868 / 2988 1713 / 1713 1331 / 1331 Balance 3338 / 3388 2868 / 2988 1713 / 1713 1331 / 1331 Weight 186 lb 6 oz 191 lb 6 oz 189 lb 9.561 oz 190 lb 8 oz Microbiology Reports for the Last 24 Hours: Microbiology 06/20/19 14:45 Sputum - Expectorated Sputum Gram Stain - Final 06/20/19 14:45 Sputum - Expectorated Sputum Sputum Culture - Preliminary Gram Negative Rods - Constitutional no acute distress, chronically ill appearing - *Routine HEENT Exam Head: Present: normocephalic. Absent: tenderness of temporal artery Eye: Present: EOMI. Absent: periorbital tenderness ENT: Present: mucous membranes dry - *Routine Neck Exam Present: full ROM, trachea midline. Absent: JVD, tracheal deviation - *Routine Respiratory Exam Present: rhonchi, wheezes, crackles - *Routine Cardiovascular Exam Present: RRR, murmur - *Routine Abdominal Exam Present: soft, normoactive bowel sounds. Absent: tenderness - *Routine Extremities Exam Absent: calf tenderness - Routine Back/Spine/Pelvis Exam Back/Spine: Present: full ROM. Absent: CVA tenderness - *Routine Skin Exam Present: intact, warm - *Routine Neurological Exam Present: alert, oriented X3 - Routine Psychiatric Exam Present: normal affect Assessment and Plan (1) Sinus tachycardia Current visit: Yes Status: Acute Category: Medical Code(s): R00.0 - Tachycardia, unspecified (2) Metastatic primary lung cancer Current visit: Yes Status: Acute Qualifiers: Laterality: unspecified laterality Qualified Code(s): C34.90 - Malignant neoplasm of unspecified part of unspecified bronchus or lung Category: Medical Code(s): C34.90 - Malignant neoplasm of unspecified part of unspecified bronchus or lung (3) Pneumonia Current visit: Yes Status: Acute Qualifiers: Pneumonia type: due to unspecified organism Laterality: bilateral Lung location: unspecified part of lung Qualified Code(s): J18.9 - Pneumonia, unspecified organism Category: Medical Code(s): J18.9 - Pneumonia, unspecified organism (4) COPD (chronic obstructive pulmonary disease) Current visit: No Status: Acute Category: Medical Code(s): J44.9 - Chronic obstructive pulmonary disease, unspecified (5) Tobacco abuse Current visit: No Status: Acute Category: Medical Code(s): Z72.0 - Tobacco use (6) Thrombocytosis Current visit: Yes Status: Acute Category: Medical Code(s): D47.3 - Essential (hemorrhagic) thrombocythemia (7) Anemia Current visit: Yes Status: Acute Category: Medical Code(s): D64.9 - Anemia, unspecified (8) Intracranial shunt Current visit: Yes Status: Acute Category: Surgical Code(s): Z98.2 - Presence of cerebrospinal fluid drainage device - Assessment and plan all Dx Assessment and Plan for all problems:: Rounded with Dr. Murry, all orders per Dr. Murry 1. Hemoglobin 7.3, will transfuse 2 units PVR C 2. Awaiting sputum culture results
[2019-06-25 09:09] LABS: Hypochromasia 2+; Lymphocytes % 2 % (10-50); Monocytes % 3 % (2-9); Neutrophils % 95 % (42-76); Total Cells Counted 100
[2019-06-26 03:21] LABS: Hematocrit 32.2 % (42.0-52.0)
[2019-06-26 03:24] LABS: Hemoglobin 9.9 g/dL (14.1-18.0)
--- NOTE | 2019-06-26 08:33 | Progress Note ---
Internal Medicine - PN: Subj *Date: 06/26/19 *Time: 08:30 Interval history: 53-year-old male patient sitting up in bed, respirations easier this morning oxygen on 5 L. Patient still denies hospice consult, will consult oncology. Exam Vital signs and Labs for Last 24 Hours: Temp Pulse Resp BP Pulse Ox 97.9 F 65 16 138/86 87 L 06/26/19 08:00 06/26/19 08:00 06/26/19 08:00 06/26/19 08:00 06/26/19 08:00 Laboratory Results - last 24 hr 06/25/19 06:25: Total Counted 100, Neutrophils % (Manual) 95 H, Lymphocytes % (Manual) 2 L, Monocytes % (Manual) 3, Platelet Estimate Slight decrease, Hypochromasia 2+ 06/25/19 09:45: Blood Type O Negative, Antibody Screen Negative, Crossmatch (AHG) See Detail 06/25/19 10:50: Blood Type Confirm O Negative 06/25/19 17:11: Urine Color Yellow, Urine Appearance Clear, Urine pH 6.0, Ur Specific [place] 1.020, Urine Protein Negative, Urine Glucose (UA) Negative, Urine Ketones Trace, Urine Blood Negative, Urine Nitrate Negative, Urine Bilirubin Negative, Urine Urobilinogen 0.2, Ur Leukocyte Esterase Negative, Urine WBC Occasional, Ur Squamous Epith Cells Occasional, Urine Bacteria Trace 06/26/19 03:15: Hgb 9.9 L D, Hct 32.2 L I & O for Last 24 hours: Intake & Output 06/23/19 06/24/19 06/25/19 06/26/19 23:59 23:59 23:59 23:59 Intake Total 2868 / 2988 1712 / 171 2251 / 2251 250 / 250 Output Total 1200 / 1200 800 / 800 Balance 2868 / 2988 1713 / 1713 1051 / 1051 -550 / -550 Weight 191 lb 6 oz 189 lb 9.561 oz 190 lb 8 oz 184 lb 5 oz Microbiology Reports for the Last 24 Hours: Microbiology 06/20/19 13:01 Blood Blood Culture - Final NO GROWTH AFTER 5 DAYS 06/20/19 13:30 Blood Blood Culture - Final NO GROWTH AFTER 5 DAYS - Constitutional no acute distress, chronically ill appearing - *Routine HEENT Exam Head: Present: normocephalic. Absent: scalp tenderness Eye: Present: EOMI, PERRL. Absent: periorbital swelling ENT: Present: mucous membranes dry. Absent: sinus tenderness - *Routine Neck Exam Present: full ROM, trachea midline. Absent: JVD, tracheal deviation - *Routine Respiratory Exam Present: decreased breath sounds, rhonchi, wheezes - *Routine Cardiovascular Exam Present: RRR, murmur - *Routine Abdominal Exam Present: soft, normoactive bowel sounds. Absent: tenderness, firm - *Routine Extremities Exam Present: pulses intact. Absent: cyanosis, calf tenderness - Routine Back/Spine/Pelvis Exam Back/Spine: Present: full ROM. Absent: CVA tenderness - *Routine Skin Exam Present: intact, warm - *Routine Neurological Exam Present: alert, CN II-XII intact. Absent: altered mental status - Routine Psychiatric Exam Present: normal affect. Absent: suicidal ideation, homicidal ideation Assessment and Plan (1) Sinus tachycardia Current visit: Yes Status: Acute Category: Medical Code(s): R00.0 - Tachycardia, unspecified (2) Metastatic primary lung cancer Current visit: Yes Status: Acute Qualifiers: Laterality: unspecified laterality Qualified Code(s): C34.90 - Malignant neoplasm of unspecified part of unspecified bronchus or lung Category: Medical Code(s): C34.90 - Malignant neoplasm of unspecified part of unspecified bronchus or lung (3) Pneumonia Current visit: Yes Status: Acute Qualifiers: Pneumonia type: due to unspecified organism Laterality: bilateral Lung location: unspecified part of lung Qualified Code(s): J18.9 - Pneumonia, unspecified organism Category: Medical Code(s): J18.9 - Pneumonia, unspecified organism (4) COPD (chronic obstructive pulmonary disease) Current visit: No Status: Acute Category: Medical Code(s): J44.9 - Chronic obstructive pulmonary disease, unspecified (5) Tobacco abuse Current visit: No Status: Acute Category: Medical Code(s): Z72.0 - Tobacco use (6) Thrombocytosis Current visit: Yes Status: Acute Category: Medical Code(s): D47.3 - Esse ntial (hemorrhagic) thrombocythemia (7) Anemia Current visit: Yes Status: Acute Category: Medical Code(s): D64.9 - Anemia, unspecified (8) Intracranial shunt Current visit: Yes Status: Acute Category: Surgical Code(s): Z98.2 - Presence of cerebrospinal fluid drainage device - Assessment and plan all Dx Assessment and Plan for all problems:: Rounded with Dr. Murry, all orders per Dr. Murry 1. We will consult oncology 2. Chest x-ray today 3. Web Pressman will discuss patient's status with she visits today
[2019-06-26 09:05] LABS: Basophils % 0.2 % (0.1-2.0); Eosinophils % 0.1 % (0.1-12.0); Hematocrit 34.2 % (42.0-52.0); Hemoglobin 10.3 g/dL (14.1-18.0); Lymphocytes # 0.2 K/mm3 (0.7-4.5); Lymphocytes % 1.4 % (10-50); Mean Corpuscular HGB Conc 30.2 g/dL (31.8-35.4); Mean Corpuscular Volume 94.6 fl (80-94); Mean Platelet Volume 8.6 fl (7.4-10.4); Monocytes # 0.2 K/mm3 (0.1-1.0); Monocytes % 1.3 % (1.7-9.3); Neutrophils # 14.2 K/mm3 (1.8-7.8); Neutrophils % 97.1 % (37.0-80.0); Platelet Count 325 K/mm3 (142-424); Red Blood Count 3.62 M/mm3 (4.60-6.20); White Blood Count 14.6 K/mm3 (4.8-10.8)
[2019-06-26 09:11] LABS: Anion Gap 12.7 mEq/L (5-15)
--- NOTE | 2019-06-26 09:50 | Pharmacy Consult Notes ---
- Pharmacy Consult Date: 06/26/19 Time: 09:48 Referring provider: DR. LEBRON Reason for Consult:: VANCOMYCIN TROUGH LEVEL Allergies and ADEs:: Allergies Allergy/AdvReac Type Severity Reaction Status Date / Time No Known Allergies Allergy Verified 06/20/19 11:42 Home Medications:: Home Medications Medication Instructions Recorded Confirmed Type dexamethasone 4 mg tablet 4 mg PO DAILY tab 04/10/19 06/20/19 History levetiracetam 500 mg tablet 500 mg PO BID 04/10/19 06/20/19 History pantoprazole 40 mg tablet,delayed 40 mg PO BID 04/10/19 06/20/19 History release Folic Acid [Folic Acid 1mg tablet] 1 mg PO DAILY 05/10/19 06/20/19 History Metoprolol Tartrate [Lopressor 12.5 mg PO BID 05/10/19 06/20/19 History 25mg tablet] albuterol sulfate 90 mcg/actuation 2 puff INHALATION Q4HP PRN 05/30/19 06/20/19 History aerosol inhaler ondansetron HCl 8 mg tablet 8 mg PO NEEDED PRN tab 05/30/19 06/20/19 History prochlorperazine maleate 10 mg 10 mg PO DAILY tab 05/30/19 06/20/19 History tablet Albuterol Sulfate [Albuterol 2.5 mg INHALATION TID 06/11/19 06/20/19 History 0.083% 2.5mg/3mL neb] Height: 1.85 m Weight: 83.603 kg Laboratory Results:: Laboratory Results - last 24 hr 06/25/19 09:45: Blood Type O Negative, Antibody Screen Negative, Crossmatch (AHG) See Detail 06/25/19 10:50: Blood Type Confirm O Negative 06/25/19 17:11: Urine Color Yellow, Urine Appearance Clear, Urine pH 6.0, Ur Specific [place] 1.020, Urine Protein Negative, Urine Glucose (UA) Negative, Urine Ketones Trace, Urine Blood Negative, Urine Nitrate Negative, Urine Bilirubin Negative, Urine Urobilinogen 0.2, Ur Leukocyte Esterase Negative, Urine WBC Occasional, Ur Squamous Epith Cells Occasional, Urine Bacteria Trace 06/26/19 03:15: Hgb 9.9 L D, Hct 32.2 L 06/26/19 08:28: WBC 14.6 H, RBC 3.62 L D, Hgb 10.3 L, Hct 34.2 L, MCV 94.6 H, MCH 28.6, MCHC 30.2 L, RDW 16.0, Plt Count 325, MPV 8.6, Neut % (Auto) 97.1 H, Lymph % (Auto) 1.4 L, [place] % (Auto) 1.3 L, Eos % (Auto) 0.1, Baso % (Auto) 0.2, Neut # (Auto) 14.2 H, Lymph # (Auto) 0.2 L, [place] # (Auto) 0.2, Eos # (Auto) 0.0, Baso # (Auto) 0.0 06/26/19 08:28: Sodium 154 H*, Potassium 3.7, Chloride 115 H, Carbon Dioxide 30, Anion Gap 12.7, BUN 28 H, Creatinine 0.48 L D, Estimated Creat Clear 213, Estimated GFR 183, Est GFR ( Amer) 221 D, Glucose 130 H, Calcium 8.0 L 06/26/19 08:28: Vancomycin Trough 8.8 L Medical History: Reports:: Cancer (lung), Seizures Denies:: Diabetes Mellitus Type 1, Diabetes Mellitus Type 2, Internal Pacemaker, MRSA Assessment and Plan (1) Sinus tachycardia Current visit: Yes Status: Acute Category: Medical Code(s): R00.0 - Tachycardia, unspecified (2) Metastatic primary lung cancer Current visit: Yes Status: Acute Qualifiers: Laterality: unspecified laterality Qualified Code(s): C34.90 - Malignant neoplasm of unspecified part of unspecified bronchus or lung Category: Medical Code(s): C34.90 - Malignant neoplasm of unspecified part of unspecified bronchus or lung (3) Pneumonia Current visit: Yes Status: Acute Qualifiers: Pneumonia type: due to unspecified organism Laterality: bilateral Lung location: unspecified part of lung Qualified Code(s): J18.9 - Pneumonia, unspecified organism Category: Medical Code(s): J18.9 - Pneumonia, unspecified organism (4) COPD (chronic obstructive pulmonary disease) Current visit: No Status: Acute Category: Medical Code(s): J44.9 - Chronic obstructive pulmonary disease, unspecified (5) Tobacco abuse Current visit: No Status: Acute Category: Medical Code(s): Z72.0 - Tobacco use (6) Thrombocytosis Current visit: Yes Status: Acute Category: Medical Code(s): D47.3 - Essential (hemorrhagic) thrombocythemia (7) Anemia Current visit: Yes Status: Acute Category: Medical Code(s): D64.9 - Anemia, unspecified (8) Intracranial shunt Current visit: Yes Status: Acute Category: Surgical Code(s): Z98.2 - Presence of cerebrospinal fluid drainage device - Assessment and plan all Dx Assessment and Plan for all problems:: BASED ON VANCOMYCIN TROUGH LEVEL AND PATIENT FACTORS, RECOMMEND CHANGING INTERVAL TO VANCOMYCIN 1750 MG IV Q18H. PHARMACY WILL CONTINUE TO MONITOR DAILY AND ADJUST APPROPRIATE.
[2019-06-26 12:46] LABS: Lymphocytes % 3 % (10-50); Monocytes % 4 % (2-9); Neutrophils % 93 % (42-76); Total Cells Counted 100
[2019-06-26 12:47] LABS: RBC Morphology Normal
--- NOTE | 2019-06-27 06:06 | Death Note ---
Pronouncement Note - Date and Time of Date of : 06/27/19 Time of : 05:45 - PCOD Preliminary cause of : Pneumonia - Additional Data Confirmation of : no pulse, no respirations, no heart sounds, pupils fixed and dilated Attending/PCP notified?: Yes Attending physician: Frederick Murry MD Was code activated?: No Autopsy requested?: No claim examiner notified?: Yes Organ bank notified?: Yes Advance directives: Yes
--- NOTE | 2019-06-27 06:10 | Discharge Summary ---
General - General Admission date:: 06/20/19 Discharge date: 06/27/19 HPI HPI: 53 yo male presents to ed with c/o of soa with history of metastatic lung cancer to brain pt was sent to emergency room for evaluation after he presented to have a second chemotherapy treatment for known lung cancer and was found to have an elevated heart rate and they requested he come here for evaluation. Patient has had some increasing shortness of breath and ZURITA. Patient also states that he has a cough which has become worse over the past few days. Cough is congested and productive. No chest pain or abdominal pain. No vomiting or diarrhea. Patient is afebrile. Hospital Course Hospital Course: pt with slow decline despite o2 and ivf with abx - pt was on lovenox and xaralto because of pul emboli- pt with dec mobilty and dec po intake and became hospice patient and with family present 0545 on 06/27/19-pt had up till becoming hospice received blood and abx - pt was comfortable at all times and i think und erstood his dx - Objective Vital signs: Temp Pulse Resp BP Pulse Ox 98.5 F 146 H 21 102/61 L 68 L 06/27/19 00:00 06/27/19 00:00 06/27/19 00:00 06/27/19 00:00 06/27/19 00:00 chronically ill appearing - *Routine HEENT Exam Head: Present: normocephalic ENT: Present: mucous membranes dry - *Routine Neck Exam Absent: JVD - *Routine Respiratory Exam Comments: no spont bs - *Routine Cardiovascular Exam Comments: no pulse - *Routine Abdominal Exam Present: soft - *Routine Extremities Exam Absent: pulses intact - *Routine Skin Exam Present: dry - *Routine Neurological Exam no response - Routine Psychiatric Exam Present: unable to assess Results Labs on day of discharge: Labs from last 24 hours 06/26/19 06/26/19 06/26/19 08:28 08:28 08:28 WBC 14.6 H RBC 3.62 L D Hgb 10.3 L Hct 34.2 L MCV 94.6 H MCH 28.6 MCHC 30.2 L RDW 16.0 Plt Count 325 MPV 8.6 Neut % (Auto) 97.1 H Lymph % (Auto) 1.4 L [place] % (Auto) 1.3 L Eos % (Auto) 0.1 Baso % (Auto) 0.2 Neut # (Auto) 14.2 H Lymph # (Auto) 0.2 L [place] # (Auto) 0.2 Eos # (Auto) 0.0 Baso # (Auto) 0.0 Total Counted 100 Neutrophils % (Manual) 93 H Lymphocytes % (Manual) 3 L Monocytes % (Manual) 4 Platelet Estimate Normal RBC Morphology Normal Sodium 154 H* Potassium 3.7 Chloride 115 H Carbon Dioxide 30 Anion Gap 12.7 BUN 28 H Creatinine 0.48 L D Estimated Creat Clear 213 Estimated GFR 183 Est GFR ( Amer) 221 D Glucose 130 H Calcium 8.0 L Vancomycin Trough 8.8 L DS: Diagnosis - Discharge Diagnosis (1) Sinus tachycardia Status: Acute (2) Metastatic primary lung cancer Status: Acute (3) Pneumonia Status: Acute (4) COPD (chronic obstructive pulmonary disease) Status: Acute (5) Tobacco abuse Status: Acute (6) Thrombocytosis Status: Acute (7) Anemia Status: Acute (8) Intracranial shunt Status: Acute (9) Pulmonary emboli Status: Acute (10) DVT (deep venous thrombosis) Status: Acute (11) Anemia Status: Acute Discharge Plan - Patient Discharge Instructions Patient Instructions: Anemia, DI for Chronic Obstructive Pulmonary Disease, DI for Deep Vein Thrombosis, DI for Pneumonia -- Adult, DI for Pulmonary Embolism - Follow up Plan Follow up with: Frederick Murry MD [Primary Care Provider] - Home Medications: Home Medications Medication Instructions Recorded Confirmed Type dexamethasone 4 mg tablet 4 mg PO DAILY tab 04/10/19 06/20/19 History levetiracetam 500 mg tablet 500 mg PO BID 04/10/19 06/20/19 History pantoprazole 40 mg tablet,delayed 40 mg PO BID 04/10/19 06/20/19 History release Folic Acid [Folic Acid 1mg tablet] 1 mg PO DAILY 05/10/19 06/20/19 History Metoprolol Tartrate [Lopressor 12.5 mg PO BID 05/10/19 06/20/19 History 25mg tablet] albuterol sulfate 90 mcg/actuation 2 puff INHALATION Q4HP PRN 05/30/19 06/20/19 History aerosol inhaler ondansetron HCl 8 mg tablet 8 mg PO NEEDED PRN tab 05/30/19 06/20/19 History prochlorperazine maleate 10 mg 10 mg PO DAILY tab 05/30/19 06/20/19 History tablet Albuterol Sulfate [Albuterol 2.5 mg INHALATION TID 06/11/19 06/20/19 History 0.083% 2.5mg/3mL neb] Prescriptions/Medication Reconciliation: No Action levetiracetam 500 mg tablet 500 mg PO BID pantoprazole 40 mg tablet,delayed release 40 mg PO BID albuterol sulfate 90 mcg/actuation aerosol inhaler 2 puff INHALATION Q4HP PRN PRN Reason: Wheezing prochlorperazine maleate 10 mg tablet 10 mg PO DAILY tab ondansetron HCl 8 mg tablet 8 mg PO NEEDED PRN tab PRN Reason: Nausea dexamethasone 4 mg tablet 4 mg PO DAILY tab Folic Acid [Folic Acid 1mg tablet] 1 mg PO DAILY Metoprolol Tartrate [Lopressor 25mg tablet] 12.5 mg PO BID Albuterol Sulfate [Albuterol 0.083% 2.5mg/3mL neb] 2.5 mg INHALATION TID - Problem Reconciliation Problems Reviewed?: Yes
--- NOTE | 2019-06-27 06:16 | Death Note ---
Discharge Sum: Prov - Provider Primary care physician: Frederick Murry MD Visit Care Team Role Provider Type Juan Swain MD Other Providers Staff Physician YVETTE Mack Other Providers Physician Professor Of Voice Maci Harris MD Other Providers Staff Physician Apoorva Hyde, ABE TEACHER Other Providers Nurse Practitioner Ele Castillo APRN Other Providers Nurse Practitioner Jose Alvarez III, DO Emergency Provider ER Physician Frederick Murry MD Admit Provider Staff Physician Attending Provider Other Providers Primary Care Provider Consults: 06/20/19 15:35 Consult to Cardiology [CONS] Routine Consulting Provider: Cardiology Reason For Consult: Tachycardia 06/21/19 12:37 Consult to Oncology [CONS] Routine Consulting Provider: Maci Harris Reason For Consult: increase in lung mass and dvt,pe 06/26/19 08:22 Consult to Oncology [CONS] Routine Consulting Provider: Frederick Murry Reason For Consult: Lung CA 06/26/19 11:39 Care Management Consult [Consult to Case Management] [CONS] Routine Reason For Consult: Hospice consult Discharge Sum: Diag - PCOD Cause of : Pneumonia Discharge Sum: Summary - Date and Time Date of admission: 06/20/19 14:01 Date of : 06/27/19 Time of : 05:45 - Additional Data Confirmation of as documented by pronouncing clinician: no pulse, no respirations, no heart sounds, pupils fixed and dilated Family: at bedside Attending/PCP notified?: Yes Attending physician: Frederick Murry MD Was code activated?: No Autopsy requested?: No customs examiner notified?: Yes Organ bank notified?: Yes Advance directives: Yes Hospice patient?: Yes
== END 2019-06-27 11:02 | disposition expired | DRG 193 ==
LOC: ER 11:32 → 2ND 13:05
PROVIDERS: ADMIT Emergency Medicine; ATTEND Emergency Medicine
CPT/HCPCS: 36415; 71010; 71045; 71275; 80048; 80053; 80202; 81001; 82272; 82803; 83605; 83735; 83880; 84484; 85007; 85014; 85018; 85025; 86850; 87040; 87070; 87077; 87186; 87205; 87275; 87276; 93005; 93306; 93970; 94640; 94761; 96365; 96367; 97110; 97163; 97166; 99285; G0328; J1335; J3370; P9016; Q9967